=== PATIENT | female | born 1945 | race Caucasian/White ===

== ENCOUNTER → 2017-01-06 | Outpatient (REF) | payer MEDICARE | LOC: M LAB REF 12:55 | PROVIDERS: ATTEND Internal Medicine Nephrology | DX: N04.0 Nephrotic syndrome with minor glomerular abnormality (principal) ==

== ENCOUNTER → 2017-03-25 | Outpatient (REF) | payer MEDICARE ==
[2017-03-25 13:14] LABS: PHOSPHORUS LEVEL 2.7 MG/DL (2.5-4.9)
== END ==
LOC: M LAB REF 12:38
PROVIDERS: ATTEND Nurse Practitioner Adult Health
DX: I12.9 Hypertensive chronic kidney disease with stage 1 through stage 4 chronic kidney disease, or unspecified chronic kidney disease (principal)

== ENCOUNTER → 2017-04-02 | Outpatient (REF) | payer MEDICARE | LOC: M LAB REF 12:52 | PROVIDERS: ATTEND Internal Medicine Nephrology | DX: R19.7 Diarrhea, unspecified (principal); N04.0 Nephrotic syndrome with minor glomerular abnormality ==

== ENCOUNTER → 2017-11-17 | Outpatient (REF) | payer MEDICARE ==
[2017-11-20 00:06] LABS: CYCLOSPORINE LABCORP 86 ng/mL (100-400)
== END ==
LOC: M LAB REF 13:18
DX: N39.0 Urinary tract infection, site not specified (principal); Z87.441 Personal history of nephrotic syndrome
CPT/HCPCS: 80158

== ENCOUNTER → 2018-01-07 | Outpatient (REF) | payer MEDICARE ==
[2018-01-07 14:05] LABS: PHOSPHORUS LEVEL 3.5 MG/DL (2.5-4.9)
== END ==
LOC: M LAB REF 13:13
DX: N18.3 Chronic kidney disease, stage 3 (moderate) (principal); E83.42 Hypomagnesemia
CPT/HCPCS: 84100

== ENCOUNTER → 2018-02-22 | Outpatient (REF) | payer MEDICARE ==
[2018-02-25 00:08] LABS: CYCLOSPORINE LABCORP 71 ng/mL (100-400)
== END ==
LOC: M LAB REF 13:20
DX: Z87.441 Personal history of nephrotic syndrome (principal)
CPT/HCPCS: 80158

== ENCOUNTER → 2018-03-25 | Outpatient (REF) | payer MEDICARE | LOC: M LAB REF 13:25 | DX: N39.0 Urinary tract infection, site not specified (principal) | CPT/HCPCS: 87186 ==

== ENCOUNTER → 2018-07-22 | Outpatient (REF) | payer MEDICARE ==
[2018-07-22 14:52] LABS: PHOSPHORUS LEVEL 3.6 MG/DL (2.5-4.9)
== END ==
LOC: M LAB REF 14:11
DX: N18.9 Chronic kidney disease, unspecified (principal)
CPT/HCPCS: 84100

== ENCOUNTER → 2018-07-22 | Outpatient (REF) | payer MEDICARE ==
[2018-07-23 12:34] LABS: FERRITIN 119 NG/ML (8-252); IRON (FE) 89 UG/DL (50-170); PERCENT SATURATION 29.2 % (13.2-45.0); TOTAL IRON BINDING CAPACITY 305 UG/DL (250-450)
== END ==
LOC: M LAB REF 11:48
DX: N18.9 Chronic kidney disease, unspecified (principal); D63.1 Anemia in chronic kidney disease
CPT/HCPCS: 83550

== ENCOUNTER → 2018-08-04 | Outpatient (REF) | payer MEDICARE ==
[2018-08-04 13:52] LABS: RETIC HEMOGLOBIN EQUIVALENT 36.1 pg (24-36); RETICULOCYTE # 74.6 10^9/L (17-77); RETICULOCYTE % 2.3 % (0.5-1.5)
[2018-08-04 14:10] LABS: FERRITIN 83 NG/ML (8-252); IRON (FE) 84 UG/DL (50-170); PERCENT SATURATION 28.6 % (13.2-45.0); TOTAL IRON BINDING CAPACITY 294 UG/DL (250-450)
== END ==
LOC: M LAB REF 13:31
DX: N18.9 Chronic kidney disease, unspecified (principal); D63.1 Anemia in chronic kidney disease
CPT/HCPCS: 83550

== ENCOUNTER 2018-08-24 08:22 | Day surgery (SDC) | payer MEDICARE ==
[2018-08-24] MEDS ORDERED: NS 1,000 ML IV (09:00)
[2018-08-24 09:33] LABS: BASO % 0.1 % (0.0-1.0); EOS % 0.1 % (0.0-3.0); HEMATOCRIT 33.8 % (36.0-47.0); HEMOGLOBIN 11.5 g/dl (12.0-15.5); IMMATURE GRANULOCYTE % 0.3 % (0-3.0); LYMPH # 0.8 10^3/uL (1.5-4.5); LYMPH % 5.3 % (24.0-44.0); MEAN CORPUSCULAR HEMOGLOBIN 32.3 pg (27.0-33.0); MEAN CORPUSCULAR VOLUME 94.9 fl (80.0-96.0); MONO # 0.9 10^3/uL (0.0-0.8); MONO % 5.7 % (0.0-5.0); NEUTROPHILS % 88.5 % (36.0-66.0); PLATELET COUNT, AUTOMATED 445 10^3/uL (150-450); RED BLOOD COUNT 3.56 10^6/uL (4.00-5.40); RED CELL DISTRIBUTION WIDTH 12.6 % (11.5-14.5); WHITE BLOOD COUNT 15.8 10^3/uL (4.0-10.0)
[2018-08-24] MEDS: GASTROGRAFIN SOLUTION 30ML PO ×2 (09:46→10:15)
[2018-08-24 10:00] LABS: ALBUMIN 3.9 GM/DL (3.2-5.2); ALBUMIN/GLOBULIN RATIO 1.08 (1.00-1.93); ALKALINE PHOSPHATASE 129 U/L (45-117); ALT/SGPT 18 U/L (12-78); AMYLASE 60 U/L (25-115); ANION GAP 11 MEQ/L (8-16); AST/SGOT 13 U/L (7-37); BILIRUBIN,DIRECT 0.1 MG/DL (0.0-0.2); BILIRUBIN,TOTAL 0.4 MG/DL (0.2-1.0); BLOOD UREA NITROGEN 33 MG/DL (7-18); CALCIUM LEVEL 9.6 MG/DL (8.8-10.2); CARBON DIOXIDE LEVEL 19 MEQ/L (21-32); CHLORIDE LEVEL 107 MEQ/L (98-107); CREATININE FOR GFR 1.32 MG/DL (0.55-1.30); GLOMERULAR FILTRATION RATE 41.9 (>39); GLUCOSE, FASTING 121 MG/DL (70-100); LIPASE 232 U/L (73-393); POTASSIUM SERUM 4.7 MEQ/L (3.5-5.1); SODIUM LEVEL 137 MEQ/L (136-145); TOTAL PROTEIN 7.5 GM/DL (6.4-8.2)
[2018-08-24 10:55] LABS: KETONE, URINE AUTO RFX NEGATIVE (NEGATIVE); LEUKOCYTE ESTERASE UR AUTO RFX NEGATIVE (NEGATIVE); MUCUS, URINE RFX SMALL (NEGATIVE); NITRITE, URINE AUTO RFX NEGATIVE (NEGATIVE); RBC, URINE AUTO RFX 0 /HPF (0-3); SPECIFIC GRAVITY UR AUTO RFX 1.005 (1.002-1.035); SQUAM EPITHELIAL CELL UR AURFX 0 /HPF (0-6); WBC, URINE AUTO RFX 0 /HPF (0-3)
[2018-08-24] MEDS: ONDANSETRON 4MG/2ML VIAL (J2405) IV (12:45)
[2018-08-24] MEDS: LevoFLOXacin IV 500 MG in APPROPRIATE DILUENT 1 EA IV (15:19)
[2018-08-24] MEDS: BUPIVACAINE HCL 0.25% 30 ML VIAL As Ordered (15:26)
[2018-08-24] MEDS ORDERED: MIDAZOLAM INJ 2 MG/2 ML VIAL (J2250) As Ordered (15:32)
[2018-08-24] MEDS ORDERED: ONDANSETRON 4MG/2ML VIAL (J2405) As Ordered (15:32)
[2018-08-24] MEDS ORDERED: fentaNYL 250 MCG/5 ML INJECTION (J3010) As Ordered (15:32)
[2018-08-24] MEDS ORDERED: LIDOCAINE 2% INJ 100 MG/5 ML SDV (FOR ANES.) As Ordered (15:32)
[2018-08-24] MEDS ORDERED: ROCURONIUM BROMIDE 50 MG/5 ML VIAL As Ordered (15:32)
[2018-08-24] MEDS ORDERED: GLYCOPYRROLATE INJ 0.2 MG/ML 2 ML VIAL As Ordered (15:32)
[2018-08-24] MEDS ORDERED: NEOSTIGMINE 10 MG/10 ML VIAL (J2710) As Ordered (15:32)
[2018-08-24] MEDS ORDERED: dexameTHASONE 4 MG/ML 1ML VIAL (J1100) As Ordered (15:32)
[2018-08-24] MEDS ORDERED: PROPOFOL 200 MG/20 ML VIAL As Ordered (15:32)
[2018-08-24] MEDS ORDERED: METOCLOPRAMIDE INJ 10MG/2ML VIAL (J2765) As Ordered (15:32)
[2018-08-24] MEDS ORDERED: PHENYLephrine HCL 500 MCG/5 ML (100MCG/ML) SYRINGE (J2370) As Ordered (16:01)
[2018-08-24] MEDS: NS 1,000 ML IV (16:55)
[2018-08-24] MEDS ORDERED: PROMETHAZINE INJ 25 MG/ML VIAL (J2550) IV (17:00)
[2018-08-24] MEDS ORDERED: HYDROmorphone HCL 2 MG/ML 1ML VIAL (J1170) As Ordered (17:00)
[2018-08-24] MEDS ORDERED: METOCLOPRAMIDE INJ 10MG/2ML VIAL (J2765) IV (17:00)
[2018-08-24] MEDS ORDERED: ALBUTEROL SULFATE 2.5 MG/0.5 ML INH NEB SOLN INH (17:00)
[2018-08-24] MEDS ORDERED: NORCO, ANEXSIA 5/325MG TABLET (HYDROcodone/ACETAMINOPHEN) PO (17:00)
[2018-08-24] MEDS ORDERED: MORPHINE 4 MG/ML 1ML VIAL/SYRINGE (J2270) IV (17:00)
[2018-08-24] MEDS ORDERED: ONDANSETRON 4MG/2ML VIAL (J2405) IV ×2 (17:00→17:30)
[2018-08-24] MEDS ORDERED: fentaNYL 100 MCG/2 ML INJECTION (J3010) IV (17:30)
[2018-08-24] MEDS ORDERED: HYDROMORPHONE HCL 0.5 MG/ 0.5 ML SYRINGE (J1170 PER 1) IV (17:30)
[2018-08-24] MEDS: LR 1,000 ML IV (17:30)
[2018-08-24] MEDS ORDERED: PERCOCET 5MG/325MG TAB PO (17:30)
[2018-08-24] MEDS: IPRATROPIUM 0.5MG/ALBUTEROL 2.5MG INH SOL UD 3ML (DUONEB)(J7620) NEB (19:28)
[2018-08-25] MEDS: IPRATROPIUM 0.5MG/ALBUTEROL 2.5MG INH SOL UD 3ML (DUONEB)(J7620) NEB ×2 (07:35→11:44)
[2018-08-25] MEDS: PANTOPRAZOLE 40MG TAB (PROTONIX) PO (08:37)
[2018-08-25] MEDS: VERAPAMIL 120 MG SR TAB PO (08:38)
[2018-08-25] MEDS: LOSARTAN 25 MG TAB PO (08:38)
[2018-08-25] MEDS: NORCO, ANEXSIA 5/325MG TABLET (HYDROcodone/ACETAMINOPHEN) PO (10:36)
[2018-08-25] MEDS ORDERED: LevoFLOXacin IV 250 MG in APPROPRIATE DILUENT 1 EA IV (18:00)
== END 2018-08-25 14:25 | disposition home or self-care (01) ==
LOC: M SDC 08-25 14:25 → M ED 08:22 → M SDC 12:15 → M PED 13:35
DX: K35.80 Unspecified acute appendicitis (principal); I12.9 Hypertensive chronic kidney disease with stage 1 through stage 4 chronic kidney disease, or unspecified chronic kidney disease; E78.5 Hyperlipidemia, unspecified; J45.909 Unspecified asthma, uncomplicated; N18.3 Chronic kidney disease, stage 3 (moderate); K21.9 Gastro-esophageal reflux disease without esophagitis; M54.9 Dorsalgia, unspecified; J44.9 Chronic obstructive pulmonary disease, unspecified; Z88.0 Allergy status to penicillin; Z88.1 Allergy status to other antibiotic agents; Z79.899 Other long term (current) drug therapy; Z79.82 Long term (current) use of aspirin
CPT/HCPCS: 44970

== ENCOUNTER 2018-09-03 16:25 | Emergency (ER) | payer MEDICARE | END 2018-09-03 18:58 | disposition home or self-care (01) | LOC: M ED 16:25 | DX: K59.00 Constipation, unspecified (principal); Z98.890 Other specified postprocedural states; I12.9 Hypertensive chronic kidney disease with stage 1 through stage 4 chronic kidney disease, or unspecified chronic kidney disease; J45.909 Unspecified asthma, uncomplicated; K21.9 Gastro-esophageal reflux disease without esophagitis; N18.3 Chronic kidney disease, stage 3 (moderate); Z88.0 Allergy status to penicillin; Z88.1 Allergy status to other antibiotic agents; Z79.899 Other long term (current) drug therapy; Z79.82 Long term (current) use of aspirin | CPT/HCPCS: 74021 ==

== ENCOUNTER → 2018-09-28 | Outpatient (REF) | payer MEDICARE ==
[~2018-09-28] MED LIST: ASPI1TAB PO; ASPI81TA85 PO; AZEL0.055; AZEL0.055 NARES; BACITAB PO; CYCL25CA6; CYCL25CA6 PO; LANS15CA PO; LASI20TA PO; LEVA250T13 PO; LOSA25TA33; LOSA25TA33 PO; MAGN400T2 PO; MIRA3350 PO; MUCI600T31 PO; NORC1TAB4 PO; PRAM0.255; PRAM0.255 PO; PRAV40TA2; PRAV40TA2 PO; PREV15CA18 PO; PROAAER10; PROAAER10 INH; PROB1CAP10 PO; VALS1TAB49; VERA100C; VERA120C3; VERA120C3 PO; VITA2000 PO; VITA200015 PO; ZOFR4TAB16 PO
== END ==
LOC: M LAB REF 12:41
PROVIDERS: ATTEND Internal Medicine Nephrology
DX: Z87.441 Personal history of nephrotic syndrome (principal)

== ENCOUNTER → 2018-11-24 | Outpatient (REF) | payer MEDICARE ==
[~2018-11-24] MED LIST changes: -LASI20TA PO; +LASI20TA3 PO; +LOSA25TA14; +LOSA25TA14 PO; -LOSA25TA33; -LOSA25TA33 PO
== END ==
LOC: M LAB REF 12:45
PROVIDERS: ATTEND Internal Medicine Nephrology
DX: Z87.441 Personal history of nephrotic syndrome (principal)

== ENCOUNTER → 2019-04-01 | Outpatient (REF) | payer MEDICARE ==
[~2019-04-01] MED LIST changes: -ASPI1TAB PO; +ASPI81TA26 PO; -NORC1TAB4 PO; +NORC1TAB7 PO
== END ==
LOC: M LAB REF 17:10
PROVIDERS: ATTEND Internal Medicine Nephrology
DX: Z87.441 Personal history of nephrotic syndrome (principal)

== ENCOUNTER → 2019-11-17 | Outpatient (REF) | payer MEDICARE ==
[~2019-11-17] MED LIST changes: -VALS1TAB49; +VALS40TA9; -VERA100C; +VERA100C4
[2019-11-17 14:25] LABS: ALBUMIN 3.9 GM/DL (3.2-5.2); BILIRUBIN,DIRECT 0.2 MG/DL (0.0-0.2); BILIRUBIN,TOTAL 0.5 MG/DL (0.2-1.0); TOTAL PROTEIN 7.3 GM/DL (6.4-8.2)
== END ==
LOC: M LAB REF 13:02
PROVIDERS: ATTEND Nurse Practitioner Family
DX: Z51.81 Encounter for therapeutic drug level monitoring (principal); Z79.899 Other long term (current) drug therapy; N18.3 Chronic kidney disease, stage 3 (moderate)

== ENCOUNTER → 2019-11-18 | Outpatient (REF) | payer MEDICARE | LOC: M LAB REF 13:34 | PROVIDERS: ATTEND Nurse Practitioner Family | DX: E87.5 Hyperkalemia (principal) ==

== ENCOUNTER 2020-06-14 10:45 | Inpatient (IN) | payer MEDICARE ==
[~2020-06-14] VITALS: Ht 149.9 cm; Wt 62.3 kg
[2020-06-14] VITALS (9 sets, daily range): BP systolic 119–165; BP diastolic 58–90
[~2020-06-14 10:45] MED LIST changes: -ASPI81TA85 PO; +ASPI81TA86 PO
[2020-06-14] MEDS ORDERED: NS 1,000 ML IV ONE (11:15)
[2020-06-14 12:09] LABS: BASO % 0.2 % (0.0-1.0); EOS % 0.4 % (0.0-3.0); HEMATOCRIT 22.2 % (36.0-47.0); HEMOGLOBIN 7.1 g/dl (12.0-15.5); LYMPH % 12.5 % (24.0-44.0); MEAN CORPUSCULAR HEMOGLOBIN 31.1 pg (27.0-33.0); MEAN CORPUSCULAR VOLUME 97.4 fl (80.0-96.0); MONO # 0.6 10^3/uL (0.0-0.8); MONO % 7.1 % (0.0-5.0); NEUTROPHILS # 6.4 10^3/uL (1.5-8.5); NEUTROPHILS % 79.3 % (36.0-66.0); PLATELET COUNT, AUTOMATED 322 10^3/uL (150-450); RED BLOOD COUNT 2.28 10^6/uL (4.00-5.40)
[2020-06-14 12:19] LABS: INR 1.01; PROTHROMBIN TIME 13.5 SECONDS (11.8-14.0)
[2020-06-14 12:43] LABS: ALBUMIN 2.9 GM/DL (3.2-5.2); ALT/SGPT 14 U/L (12-78); BILIRUBIN,DIRECT 0.1 MG/DL (0.0-0.2); BILIRUBIN,TOTAL 0.3 MG/DL (0.2-1.0); BLOOD UREA NITROGEN 54 MG/DL (7-18); CALCIUM LEVEL 8.4 MG/DL (8.8-10.2); CARBON DIOXIDE LEVEL 18 MEQ/L (21-32); CHLORIDE LEVEL 108 MEQ/L (98-107); CPK CREATINE PHOSPHOKINASE 60 U/L (26-192); CREATININE FOR GFR 2.07 MG/DL (0.55-1.30); GLOMERULAR FILTRATION RATE 24.8 (>39); GLUCOSE, FASTING 137 MG/DL (70-100); LIPASE 162 U/L (73-393); MB/CK RELATIVE INDEX 1.67 (< OR =4); POTASSIUM SERUM 4.1 MEQ/L (3.5-5.1); SODIUM LEVEL 137 MEQ/L (136-145); TOTAL PROTEIN 5.7 GM/DL (6.4-8.2); TROPONIN I < 0.02 NG/ML (< 0.10)
[2020-06-14] MEDS ORDERED: PANTOPRAZOLE 40MG VIAL (C9113 PER 1) IV ONE (13:00)
[2020-06-14] MEDS ORDERED: ACETAMINOPHEN TAB 650MG DOSE (2X325MG) PO PRN (13:45)
[2020-06-14] MEDS ORDERED: D200CAP PO (13:56)
[2020-06-14] MEDS ORDERED: LOPE2TAB12 PO (13:56)
[2020-06-14] MEDS ORDERED: PREV15CA PO (13:56)
[2020-06-14] MEDS ORDERED: ACET1TAB55 PO ×2 (13:58→14:01)
--- NOTE | 2020-06-14 15:10 | HPEPDOC ---
General Date of Admission Jun 14, 2020 at 13:40 Date of Service: Jun 14, 2020 Attending Physician: JOSE ROBERTO KEN MD Chief Complaint The patient is a 75-year-old female admitted with a reason for visit of Gi Bleed. Source: Patient Exam Limitations: No limitations Timing/Duration: 24 hours Severity: Moderate Associated Symptoms: Syncope History of Present Illness 75 yo W with history of remote LGIB 2/2 diverticulosis, history of colonic polyps, Q5Y colonoscopies for history of polyps and 1st degree relative with colon CA, last colonoscopy in [address] Tolbert during which she was noted to have diffuse diverticulosis throughout the entire colon and internal hemorrhoids, who presents to the ED with shona BRBPR with associated syncopal episode at home. In the ED, she was hemodynamically stable, stable on room air but reported multiple bouts of shona painless blood per rectum without abdominal pain, recent straining or constipation, notable weight loss or weakness until yesterday. She is still working fulltime and has medical history significant for CKD3, HTN and GERD. Workup thus far revealed hgb of 7.1 (from last known of 11s in 2017), WBC 8, platelets 322, na 137, K 4.1, bicarb 18, BUN 54, Cr 2.07, LFTs wnl, lipase 162. The ED type and crossed her and ordered 2u pRBCs and TAYLOR'payam Fields who recommended admission to medicine. I am not admitting for further evaluation of her LGIB. Home Medications Scheduled Acetaminophen (Acetaminophen) 325 Mg Tablet, 325 MG PO QAM, (Reported) Aspirin (Aspirin EC) 81 Mg Tab, 81 MG PO QAM, (Reported) Cholecalciferol (Vitamin D3) (Vitamin D3) 50 Mcg Capsule, 2,000 UNITS PO DAILY, (Reported) Cyclosporine, Modified (Cyclosporine Modified) 25 Mg Cap, 50 MG PO BID, (Reported) L.acidoph/L.bulg/B.bif/S.therm (Bacid Caplet) 1 Tab Tab, 1 TAB PO QHS, (Reported) Lansoprazole (Lansoprazole) 15 Mg Cap, 15 MG PO DAILY, (Reported) Magnesium Oxide (Magnesium Oxide) 400 Mg Tab, 400 MG PO 4XWK, (Reported) SUN,MON,WED,FRI Pravastatin Sodium (Pravastatin Sodium) 40 Mg Tab, 40 MG PO DAILY, (Reported) Verapamil HCl (Verapamil Sr) 120 Mg Cap, 120 MG PO DAILY, (Reported) Scheduled PRN Acetaminophen (Acetaminophen) 325 Mg Tablet, 325 MG PO QHS PRN for PAIN / FEVER, (Reported) Loperamide HCl (Imodium A-D) 2 Mg Tablet, 2 MG PO BID PRN for DIARRHEA, (Reported) Allergies Coded Allergies: Penicillins (Verified Allergy, Unknown, 06/14/20) doxycycline (Verified Allergy, Unknown, 06/14/20) levofloxacin (Verified Allergy, Unknown, 06/14/20) Past Medical History Medical History LGIB 2/2 diverticulosis, history of colonic polyps, Q5Y colonoscopies for history of polyps and 1st degree relative with colon CA, last colonoscopy [place] [address] 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 Completely independent. A-FIB/CHADSVASC A-FIB History Current/History of A-Fib/PAF?: No Current PO Anticoag Therapy: No Age/Risk Factor Scoring CHADSVASC: CHADSVASC Response (Comments) Value Age Risk Factor Age >/= 75 years old 2 Gender Risk Factor Female 1 Hx of CHF No 0 Hx of HTN Yes 1 Hx of Stroke/TIA/or VTE No 0 Hx of Diabetes No 0 Hx of Vascular Disease No 0 Total 4 Treatment Treatment ordered: NONE Reason Anticoagulant not given: Not indicated/[id number] Review of Systems Constitutional: Denies: Chills, Fever, Night Sweats Eyes: Denies: Pain, Vision change ENT: Denies: Head Aches, Ear Pain, Dysphagia Skin: Denies: Rash, Lesions, Breakdown Pulmonary: Denies: Dyspnea, Cough Cardiovascular: Denies: Chest Pain, Palpitations, Orthopnea, Paroxysmal Noc. Dyspnea, Lt Headedness Gastrointestinal: Reports: Hematochezia, Other Symptoms (shona BRBPR); Denies: Nausea, Vomiting, Abdominal Pain, Diarrhea Genitourinary: Denies: Dysuria, Frequency, Incontinence, Retention Hematologic: Denies: Bruising, Bleeding Excessively Endocrine: Denies: Polydipsia, Polyphagia, Polyuria, Heat Intolerance, Cold Intolerance, Other Endocrine Sx Musculoskeletal: Denies: Neck Pain, Back Pain, Joint Pain, Muscle Pain, Spasms Neurological: Denies: Weakness, Numbness, Change in speech, Confusion Psych: Reports: Mood Normal; Denies: Depression, Memory Issues Physical Examination General Exam: Positive: Alert, No Acute Distress Eye Exam: Positive: PERRLA, Conjunctiva & lids normal, EOMI; Negative: Sclera icteric ENT Exam: Positive: Atraumatic, Mucous membr. moist/pink, Pharynx Normal Neck Exam: Positive: Supple; Negative: JVD, thyromegaly Chest Exam: Positive: Clear to auscultation, Normal air movement Heart Exam: Positive: Rate Normal, Regular Rhythm, Normal S1, Normal S2; Negative: Murmurs, Rubs Telemetry: Positive: No significant arrhythmia Abdomen Exam: Positive: Normal bowel sounds, Soft; Negative: Tenderness, Hepatospenomegaly, Mass, Hernia Extremity Exam: Positive: Normal pulses; Negative: Clubbing, Cyanosis, Edema Skin Exam: Positive: Nl turgor and temperature; Negative: Breakdown, Lesion Neuro Exam: Positive: Normal Gait, Normal Speech, Strength at 5/5 X4 ext, Normal Tone, Sensation Intact, Cranial Nerves 3-12 NL Psych Exam: Positive: Mental status NL, Oriented x 3 Vital Signs Vital Signs Date Time Temp Pulse Resp B/P (MAP) Pulse Ox O2 Delivery O2 Flow Rate FiO2 06/14/20 12:08 109 110/64 (79) 110 108/66 (80) 112 116/69 (85) 06/14/20 10:45 97.3 20 97 Room Air Laboratory Data Labs 24H Laboratory Tests 2 06/14/20 11:51: Immature Granulocyte % (Auto) 0.5, Neutrophils (%) (Auto) 79.3H, Lymphocytes (%) (Auto) 12.5L, Monocytes (%) (Auto) 7.1H, Eosinophils (%) (Auto) 0.4, Basophils (%) (Auto) 0.2, Neutrophils # (Auto) 6.4, Lymphocytes # (Auto) 1.0L, Monocytes # (Auto) 0.6, Eosinophils # (Auto) 0.0, Basophils # (Auto) 0.0, Nucleated Red Blood Cells % (auto) 0.0, Prothrombin Time 13.5, Prothromb Time International Ratio 1.01, Anion Gap 11, Glomerular Filtration Rate 24.8L, Lactic Acid Level 2.4*H, Calcium Level 8.4L, Total Bilirubin 0.3, Direct Bilirubin 0.1, Aspartate Amino Transf (AST/SGOT) 15, Alanine Aminotransferase (ALT/SGPT) 14, Alkaline Phosphatase 80, Total Creatine Kinase 60, Creatine Kinase MB 1.0, Creatine Kinase MB Relative Index 1.67, Troponin I < 0.02, Total Protein 5.7L, Albumin 2.9L, Albumin/Globulin Ratio 1.0L, Lipase 162 CBC/BMP Laboratory Tests 06/14/20 11:51 Assessment/Plan 75 yo W with history of remote LGIB 2/2 diverticulosis, history of colonic polyps, Q5Y colonoscopies for history of polyps and 1st degree relative with colon CA, last colonoscopy in [address] Tolbert during which she was noted to have diffuse diverticulosis throughout the entire colon and internal hemorrhoids, as well as chronic anemia last known Hgb ~11 who presents to the ED with shona BRBPR with associated syncopal episode at home and found to have acute LGIB with acute on chronic anemia. LGIB: Painless shona bright red blood per rectum and hematochezia with a history of remote LGIB 2/2 diverticulosis, history of colonic polyps, Q5Y colonoscopies for history of polyps and 1st degree relative with colon CA, last colonoscopy in [address] Tolbert during which she was noted to have diffuse diverticulosis throughout the entire colon and internal hemorrhoids. -getting 2u pRBCs currently -Q6H CBC -Transfuse to Hgb >8 -Spoke wtih Dr. Fields, given suspicion of diverticular bleeding, will monitor degree of bleeding and Q6H CBC and will officially consult if bleeding is persistent -CT A/P without contrast given history of colonic polyps and strong history of colon CA in 1st degree relatives -s/p 1L NS and normotensive -2 large bore IVs Acute on chronic anemia: Likely 2/2 GIB but will also check Fe studies given chronic anemia history -Ferritin -TIB -iron -% saturation Vitamin 312 -folate -getting 2u pRBCs, with goal hgb >8 -Monitoring GIB for indication of emergent intervention Syncope: likely 2/2 acute volume loss in the setting of significant GIB as well as symptomatic anemia -No chest pain, EKG was non ischemic and telemetry thus far unremarkable -telemetry -s/p 1L NS, currently getting 2u pRBCs -monitor for GIB and investigate GIB per above -unlikely cardiac in origin -orthostatic vitals signs x 1 ANDRES on 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 Likely prerenal in the setting of GIB -continue home cyclosporine -monitor BMP, with bicarb of 18 and Cr of ~2 -s/p 1L NS and getting 2u pRBCs -strict I/Os HTN: -continue home verapamil GI ppx: IV PPI BID for now, though she really unlikely has an upper GIB DVT ppx: TEDs and SCDs Plan / VTE VTE Prophylaxis Ordered?: Yes JOSE ROBERTO KEN MD Jun 14, 2020 15:10
[2020-06-14 15:17] LABS: PERCENT SATURATION 22.6 % (13.2-45.0)
[2020-06-14 15:24] LABS: FOLATE 11.4 NG/ML (>5.4)
--- NOTE | 2020-06-14 16:02 | REPVR ---
PROCEDURE INFORMATION: Exam: CT Abdomen And Pelvis Without Contrast Exam date and time: 06/14/2020 3:26 PM Age: 75 years old Clinical indication: Other: Brbpr with HX of polyps and fam HX of colon CA TECHNIQUE: Imaging protocol: Computed tomography of the abdomen and pelvis without contrast. Radiation optimization: All CT scans at this facility use at least one of these dose optimization techniques: automated exposure control; mA and/or kV adjustment per patient size (includes targeted exams where dose is matched to clinical indication); or iterative reconstruction. COMPARISON: CT ABD/PEL W/PO CONTRAST ONLY 08/24/2018 11:20 AM FINDINGS: Lungs: There are minor linear atelectatic or fibrotic densities the lung bases. No consult. Mediastinal space: There is a moderate hiatal hernia. Liver: The liver is normal. Gallbladder and bile ducts: The gallbladder is normal.No calcified calculi. Normal bile ducts. Pancreas: Normal. No ductal dilation. Spleen: The spleen is normal. Adrenals: The adrenals are normal. Kidneys and ureters: There are bilateral hypodense renal lesions. The largest is on the left measuring 14 mm. There is a small density in the posterior rim. These are probably uncomplicated cysts and are unchanged since the prior scan. There is no renal calculus or nephrosis. Stomach and bowel: There are extensive colonic diverticula. No bowel wall thickening or inflammation. No bowel distension. Appendix: There are surgical sutures at the tip of the cecum and there is no visible appendix consistent with appendectomy since the prior scan Intraperitoneal space: There is no free fluid or fluid collection. No free air. 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 There are atherosclerotic calcifications of the aorta. No evidence of aortic aneurysm. There are coronary artery calcifications. Lymph nodes: Unremarkable. No enlarged lymph nodes. Bladder: The bladder is normal with no evidence of calculi. Reproductive: A calcified 2.2 cm uterine fibroid unchanged from prior scan. Bones/joints: There are degenerative changes of the lumbar spine. No fracture or focal osseous lesion. Soft tissues: Unremarkable. IMPRESSION: 1. Extensive diverticulosis. 2. Moderate hiatal hernia. 3. Appendectomy since the previous scan. No acute findings. Electronically signed by: Jabier So On 06/14/2020 16:01:37 PM
[2020-06-14] MEDS: LACTOBACILLUS ACIDOPHILUS CAP (BACID) PO SCH (22:30)
[2020-06-14] MEDS: NEORAL 25 MG CAP (J7515) PO SCH (22:51)
[2020-06-14] MEDS: PANTOPRAZOLE 40MG VIAL (C9113 PER 1) IV SCH (23:50)
[2020-06-15 00:44] VITALS: BP 134/62
[2020-06-15 00:51] LABS: MEAN CORPUSCULAR HEMOGLOBIN 31.5 pg (27.0-33.0); MEAN CORPUSCULAR HGB CONC 33.7 g/dl (32.0-36.5); MEAN CORPUSCULAR VOLUME 93.4 fl (80.0-96.0); PLATELET COUNT, AUTOMATED 267 10^3/uL (150-450); RED BLOOD COUNT 2.89 10^6/uL (4.00-5.40); WHITE BLOOD COUNT 7.6 10^3/uL (4.0-10.0)
[2020-06-15 01:01] LABS: HEMOGLOBIN 9.1 g/dl (12.0-15.5)
[2020-06-15] MEDS ORDERED: ASPIRIN 81 MG ENTERIC TAB PO SCH (09:00)
[2020-06-15] MEDS: PRAVASTATIN 20 MG TAB PO SCH (09:26)
[2020-06-15] MEDS: PANTOPRAZOLE 40MG VIAL (C9113 PER 1) IV SCH (09:26)
[2020-06-15] MEDS: VERAPAMIL 120 MG SR TAB PO SCH (09:27)
[2020-06-15] MEDS: NEORAL 25 MG CAP (J7515) PO SCH ×2 (09:28→20:57)
[2020-06-15 09:33] LABS: HEMOGLOBIN 9.3 g/dl (12.0-15.5); MEAN CORPUSCULAR HEMOGLOBIN 31.3 pg (27.0-33.0); MEAN CORPUSCULAR HGB CONC 34.4 g/dl (32.0-36.5); MEAN CORPUSCULAR VOLUME 90.9 fl (80.0-96.0); PLATELET COUNT, AUTOMATED 287 10^3/uL (150-450); RED BLOOD COUNT 2.97 10^6/uL (4.00-5.40); WHITE BLOOD COUNT 8.4 10^3/uL (4.0-10.0)
[2020-06-15 10:15] LABS: CALCIUM LEVEL 8.4 MG/DL (8.8-10.2); CREATININE FOR GFR 1.28 MG/DL (0.55-1.30); GLOMERULAR FILTRATION RATE 43.2 (>39); MAGNESIUM LEVEL 1.8 MG/DL (1.8-2.4); POTASSIUM SERUM 3.7 MEQ/L (3.5-5.1)
--- NOTE | 2020-06-15 12:53 | IPNPDOC ---
Text Note Date of Service The patient was seen on 06/15/20. NOTE Subjective: -No issues overnight. H/H stable this AM. Then midmorning she began having painless hematochezia again, 4 episodes at this point General: Alert, No Acute Distress Eye: PERRLA, Conjunctiva & lids normal, EOMI, anicteric ENT: Atraumatic, Mucous membr. moist/pink, Pharynx Normal Neck: Supple, no JVD or thyromegaly Chest: Clear to auscultation, Normal air movement Heart: Rate Normal, Regular Rhythm, Normal S1, Normal S2, no mrg Telemetry: NSR, no arrhythmia Abdomen: Normal bowel sounds, soft, NTND Extremities: Normal pulses, no LE edema Skin: Nl turgor and temperature, has bruise on arm at site of old IV, otherwise no lesions or rashes Neuro Exam: Normal Speech, Strength at 5/5 X4 ext, Normal Tone, Sensation Intact, Cranial Nerves 3-12 NL Psych : Mental status NL, Oriented x 3 Data: Reviewed WBC 8.4 Hgb 9.3 platelets 287 na 144 K 3.7 Cr 1.28 mag 1.8 Assessment/Plan 75 yo W with history of remote LGIB 2/2 diverticulosis, history of colonic polyps, Q5Y colonoscopies for history of polyps and 1st degree relative with colon CA, last colonoscopy in [address] Tolbert during which she was noted to have diffuse diverticulosis throughout the entire colon and internal hemorrhoids, as well as chronic anemia last known Hgb ~11 who presents to the ED with shona BRBPR with associated syncopal episode at home and found to have acute LGIB with acute on chronic anemia with ongoing episodic hemetochezia this morning. LGIB: Painless shona bright red blood per rectum and hematochezia with a history of remote LGIB 2/2 diverticulosis, history of colonic polyps, Q5Y colonoscopies for history of polyps and 1st degree relative with colon CA, last colonoscopy in [address] Tolbert during which she was noted to have diffuse diverticulosis throughout the entire colon and internal hemorrhoids. -s/p 2u pRBCs currently -Q6H CBC -Transfuse to Hgb >8 -Spoke wtih Dr. Fields, given suspicion of diverticular bleeding, will monitor degree of bleeding and Q12H CBC and will officially consult if bleeding is severe requiring more units of blood -CT A/P without contrast given history of colonic polyps and strong history of colon CA in 1st degree relatives showed no culprit lesion, showed diffuse diverticulosis -s/p 1L NS and normotensive -2 large bore IVs -checking CBC at 1600hrs -clear liquid diet Acute on chronic anemia: Likely 2/2 GIB but will also check Fe studies given chronic anemia history -Ferritin low and low Fe, c/w TAMMY likely 2/2 chronic GI losses -s/p 2u pRBCs, with goal hgb >8 -Monitoring GIB for indication of emergent intervention such as colonoscopy, will likely give more blood this afternoon -Q12H CBCs -will need to be on PO ferrous sulfate at discharge Syncope: likely 2/2 acute volume loss in the setting of significant GIB as well as symptomatic anemia -No chest pain, EKG was non ischemic and telemetry thus far unremarkable -telemetry -s/p 1L NS, s/p 2u pRBCs -monitor for GIB and investigate GIB per above -unlikely cardiac in origin ANDRES on 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 Likely prerenal in the setting of GIB, much improved -continue home cyclosporine -monitor BMP, with bicarb of 18 and Cr of ~2 -s/p 1L NS and 2u pRBCs -strict I/Os HTN: -continue home verapamil GI ppx: daily PPI DVT ppx: TEDs and SCDs VS,Fishbone, I+O VS, Fishbone, I+O Laboratory Tests 06/15/20 00:34 06/15/20 09:18 Vital Signs Date Time Temp Pulse Resp B/P (MAP) Pulse Ox O2 Delivery O2 Flow Rate FiO2 06/15/20 11:47 98.1 87 16 148/66 (93) 95 Room Air 06/14/20 20:49 97 I&O- Last 24 Hours up to 6 AM 06/15/20 06:00 Intake Total 1200 ml Balance 1200 ml JOSE ROBERTO KEN MD Jun 15, 2020 12:53
[2020-06-15 13:40] VITALS: BP 139/80
[2020-06-15] MEDS: LACTOBACILLUS ACIDOPHILUS CAP (BACID) PO SCH (20:57)
[2020-06-15 22:00] VITALS: BP 133/77
[2020-06-16 06:00] VITALS: BP 117/56
[2020-06-16 06:21] LABS: HEMATOCRIT 25.4 % (36.0-47.0); HEMOGLOBIN 8.4 g/dl (12.0-15.5); MEAN CORPUSCULAR HEMOGLOBIN 30.9 pg (27.0-33.0); MEAN CORPUSCULAR HGB CONC 33.1 g/dl (32.0-36.5); MEAN CORPUSCULAR VOLUME 93.4 fl (80.0-96.0); PLATELET COUNT, AUTOMATED 291 10^3/uL (150-450); RED BLOOD COUNT 2.72 10^6/uL (4.00-5.40); WHITE BLOOD COUNT 6.2 10^3/uL (4.0-10.0)
[2020-06-16 06:53] LABS: CALCIUM LEVEL 8.1 MG/DL (8.8-10.2); CREATININE FOR GFR 1.14 MG/DL (0.55-1.30); GLOMERULAR FILTRATION RATE 49.3 (>39); POTASSIUM SERUM 4.1 MEQ/L (3.5-5.1)
[2020-06-16] MEDS: PRAVASTATIN 20 MG TAB PO SCH (09:07)
[2020-06-16] MEDS: VERAPAMIL 120 MG SR TAB PO SCH (09:10)
[2020-06-16] MEDS: NEORAL 25 MG CAP (J7515) PO SCH ×2 (09:10→19:41)
[2020-06-16] MEDS: PANTOPRAZOLE 40MG VIAL (C9113 PER 1) IV SCH (09:12)
[2020-06-16 14:00] VITALS: BP 110/60
[2020-06-16 16:13] LABS: HEMATOCRIT 24.4 % (36.0-47.0); HEMOGLOBIN 8.2 g/dl (12.0-15.5)
--- NOTE | 2020-06-16 18:37 | IPNPDOC ---
Text Note Date of Service The patient was seen on 06/16/20. NOTE Subjective: -Has been having more bloody movements that seem to concide with PO at this time, otherwise no pain complaints, no N/V, chest pain, or tele events General: Alert, No Acute Distress Eye: PERRLA, Conjunctiva & lids normal, EOMI, anicteric ENT: Atraumatic, Mucous membr. moist/pink, Pharynx Normal Neck: Supple, no JVD or thyromegaly Chest: Clear to auscultation, Normal air movement Heart: Rate Normal, Regular Rhythm, Normal S1, Normal S2, no mrg Telemetry: NSR, no arrhythmia Abdomen: Normal bowel sounds, soft, NTND Extremities: Normal pulses, no LE edema Skin: Nl turgor and temperature, has bruise on arm at site of old IV, otherwise no lesions or rashes Neuro Exam: Normal Speech, Strength at 5/5 X4 ext, Normal Tone, Sensation Intact, Cranial Nerves 3-12 NL Psych : Mental status NL, Oriented x 3 Data: Reviewed WBC 6.2 Hgb 8.4 na 143 K 4.1 Cr 1.14 Assessment/Plan 75 yo W with history of remote LGIB 2/2 diverticulosis, history of colonic polyps, Q5Y colonoscopies for history of polyps and 1st degree relative with colon CA, last colonoscopy in [address] Tolbert during which she was noted to have diffuse diverticulosis throughout the entire colon and internal hemorrhoids, as well as chronic anemia last known Hgb ~11 who presents to the ED with shona BRBPR with associated syncopal episode at home and found to have acute LGIB with acute on chronic anemia with ongoing episodic hemetochezia this morning. LGIB: Painless shona bright red blood per rectum and hematochezia with a history of remote LGIB 2/2 diverticulosis, history of colonic polyps, Q5Y colonoscopies for history of polyps and 1st degree relative with colon CA, last colonoscopy in [address] Tolbert during which she was noted to have diffuse diverticulosis throughout the entire colon and internal hemorrhoids. -s/p 2u pRBCs -Q6H CBC -Transfuse to Hgb >8 -Spoke wtih Dr. Fields, given suspicion of diverticular bleeding, will monitor degree of bleeding and Q12H CBC and will officially consult if bleeding is severe requiring more units of blood -CT A/P without contrast given history of colonic polyps and strong history of colon CA in 1st degree relatives showed no culprit lesion, showed diffuse diverticulosis -s/p 1L NS and normotensive -2 large bore IVs -checking CBC at 1600hrs -advance to full liquid diet Acute on chronic anemia: Likely 2/2 GIB but will also check Fe studies given chronic anemia history -Ferritin low and low Fe, c/w TAMMY likely 2/2 chronic GI losses -s/p 2u pRBCs, with goal hgb >8 -Monitoring GIB for indication of emergent intervention such as colonoscopy, will likely give more blood this afternoon -Q12H H/Hs -will need to be on PO ferrous sulfate at discharge Syncope: likely 2/2 acute volume loss in the setting of significant GIB as well as symptomatic anemia -No chest pain, EKG was non ischemic and telemetry thus far unremarkable -telemetry -s/p 1L NS, s/p 2u pRBCs -monitor for GIB and investigate GIB per above -unlikely cardiac in origin ANDRES on 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 Likely prerenal in the setting of GIB, resolved -continue home cyclosporine -monitor BMP, with bicarb of 18 and Cr of ~2 -s/p 1L NS and 2u pRBCs -strict I/Os HTN: -continue home verapamil GI ppx: daily PPI DVT ppx: TEDs and SCDs VS,Fishbone, I+O VS, Fishbone, I+O Laboratory Tests 06/16/20 05:43 06/16/20 16:03 Vital Signs Date Time Temp Pulse Resp B/P (MAP) Pulse Ox O2 Delivery O2 Flow Rate FiO2 06/16/20 14:00 98.2 76 16 110/60 (77) 92 Room Air 06/14/20 20:49 97 I&O- Last 24 Hours up to 6 AM 06/16/20 06:00 Intake Total 660 ml Output Total 0 ml Balance 660 ml JOSE ROBERTO KEN MD Jun 16, 2020 18:37
[2020-06-16] MEDS: LACTOBACILLUS ACIDOPHILUS CAP (BACID) PO SCH (19:40)
[2020-06-17] VITALS (10 sets, daily range): BP systolic 98–146; BP diastolic 52–86
[2020-06-17 06:16] LABS: HEMATOCRIT 24.5 % (36.0-47.0); HEMOGLOBIN 8.4 g/dl (12.0-15.5); MEAN CORPUSCULAR HEMOGLOBIN 31.7 pg (27.0-33.0); MEAN CORPUSCULAR HGB CONC 34.3 g/dl (32.0-36.5); MEAN CORPUSCULAR VOLUME 92.5 fl (80.0-96.0); PLATELET COUNT, AUTOMATED 317 10^3/uL (150-450); RED BLOOD COUNT 2.65 10^6/uL (4.00-5.40); WHITE BLOOD COUNT 5.8 10^3/uL (4.0-10.0)
[2020-06-17 06:33] LABS: CALCIUM LEVEL 8.4 MG/DL (8.8-10.2); CREATININE FOR GFR 1.11 MG/DL (0.55-1.30); GLOMERULAR FILTRATION RATE 50.9 (>39); POTASSIUM SERUM 4.3 MEQ/L (3.5-5.1)
[2020-06-17] MEDS: PANTOPRAZOLE 40MG VIAL (C9113 PER 1) IV SCH (08:29)
[2020-06-17] MEDS: NEORAL 25 MG CAP (J7515) PO SCH (08:31)
[2020-06-17] MEDS: PRAVASTATIN 20 MG TAB PO SCH (08:32)
[2020-06-17] MEDS: VERAPAMIL 120 MG SR TAB PO SCH (08:33)
--- NOTE | 2020-06-17 15:33 | DS.PDOC ---
Discharge Summary General Date of Admission Jun 14, 2020 at 13:40 Date of Discharge 06/17/2020 Attending Physician: JOSE ROBERTO KEN MD Discharge Summary PROCEDURES PERFORMED DURING STAY: None ADMITTING DIAGNOSES: 1. LGIB DISCHARGE DIAGNOSES: LGIB 2/2 diverticulosis History of colonic polyps, Q5Y colonoscopies for history of polyps and 1st degree relative with colon CA, last colonoscopy [place] [address] 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 HISTORY OF PRESENT ILLNESS: 75 yo W with history of remote LGIB 2/2 diverticulosis, history of colonic polyps, Q5Y colonoscopies for history of polyps and 1st degree relative with colon CA, last colonoscopy in [address] Tolbert during which she was noted to have diffuse diverticulosis throughout the entire colon and internal hemorrhoids, who presented to the ED with shona BRBPR with associated syncopal episode at home. HOSPITAL COURSE: In the ED, she was hemodynamically stable, stable on room air but reported multiple bouts of shona painless blood per rectum without abdominal pain, recent straining or constipation, notable weight loss or weakness until yesterday. She is still working fulltime and has medical history significant for CKD3, HTN and GERD. Workup revealed hgb of 7.1 (from last known of 11s in 2018), WBC 8, platelets 322, na 137, K 4.1, bicarb 18, BUN 54, Cr 2.07, LFTs wnl, lipase 162. The ED type and crossed her and ordered 2u pRBCs and FYI'd Dr. Fields who recommended admission to medicine. While on medicine she had episodic hematochezia that slowed and I gave her 1 more unit of blood before discharge home with close PCP follow up. Of note, given the strong history of polyps and first degree relative having a history of colon CA, I did a CT A/P and it showed diffuse diverticulosis without any masses or other acute pathology. DISCHARGE MEDICATIONS: Please see below. ALLERGIES: Please see below. PHYSICAL EXAMINATION ON DISCHARGE: VITAL SIGNS: Please see below. General: Alert, No Acute Distress Eye: PERRLA, Conjunctiva & lids normal, EOMI, anicteric ENT: Atraumatic, Mucous membr. moist/pink, Pharynx Normal Neck: Supple, no JVD or thyromegaly Chest: Clear to auscultation, Normal air movement Heart: Rate Normal, Regular Rhythm, Normal S1, Normal S2, no mrg Telemetry: NSR, no arrhythmia Abdomen: Normal bowel sounds, soft, NTND Extremities: Normal pulses, no LE edema Skin: Nl turgor and temperature Neuro Exam: Normal Speech, Strength at 5/5 X4 ext, Normal Tone, Sensation Intact, Cranial Nerves 3-12 NL Psych : Mental status NL, Oriented x 3 LABORATORY DATA: Please see below. IMAGING: CT A/P: 1. Extensive diverticulosis. 2. Moderate hiatal hernia. 3. Appendectomy since the previous scan. No acute findings. PROGNOSIS: Good, however likely to have some episodic bleeding in the future ACTIVITY: As tolerated DIET: As tolerated DISCHARGE PLAN: Home with closes PCP follow up DISPOSITION: Home DISCHARGE INSTRUCTIONS: 1. Home with closes PCP follow up ITEMS TO FOLLOWUP ON ON OUTPATIENT: 1. Diverticular bleeding DISCHARGE CONDITION: Stable TIME SPENT ON DISCHARGE: 36 minutes. Vital Signs/I&Os Vital Signs Date Time Temp Pulse Resp B/P (MAP) Pulse Ox O2 Delivery O2 Flow Rate FiO2 06/17/20 08:33 86 130/74 06/17/20 06:00 98.2 18 96 Room Air 06/14/20 20:49 97 I&O- Last 24 Hours up to 6 AM 06/17/20 06:00 Intake Total 1900 ml Output Total 0 ml Balance 1900 ml Laboratory Data Labs 24H Laboratory Tests 2 06/17/20 05:46: Nucleated Red Blood Cells % (auto) 0.0, Anion Gap 5L, Glomerular Filtration Rate 50.9, Calcium Level 8.4L CBC/BMP Laboratory Tests 06/16/20 16:03 06/17/20 05:46 Discharge Medications Scheduled Acetaminophen (Acetaminophen) 325 Mg Tablet, 325 MG PO QAM, (Reported) Aspirin (Aspirin EC) 81 Mg Tab, 81 MG PO QAM, (Reported) Cholecalciferol (Vitamin D3) (Vitamin D3) 50 Mcg Capsule, 2,000 UNITS PO DAILY, (Reported) Cyclosporine, Modified (Cyclosporine Modified) 25 Mg Cap, 50 MG PO BID, (Reported) L.acidoph/L.bulg/B.bif/S.therm (Bacid Caplet) 1 Tab Tab, 1 TAB PO QHS, (Reported) Lansoprazole (Lansoprazole) 15 Mg Cap, 15 MG PO DAILY, (Reported) Magnesium Oxide (Magnesium Oxide) 400 Mg Tab, 400 MG PO 4XWK, (Reported) SUN,MON,THU,FRI Pravastatin Sodium (Pravastatin Sodium) 40 Mg Tab, 40 MG PO DAILY, (Reported) Verapamil HCl (Verapamil Sr) 120 Mg Cap, 120 MG PO DAILY, (Reported) Scheduled PRN Acetaminophen (Acetaminophen) 325 Mg Tablet, 325 MG PO QHS PRN for PAIN / FEVER, (Reported) Loperamide HCl (Imodium A-D) 2 Mg Tablet, 2 MG PO BID PRN for DIARRHEA, (Reported) Allergies Coded Allergies: Penicillins (Verified Allergy, Unknown, 06/14/20) doxycycline (Verified Allergy, Unknown, 06/14/20) levofloxacin (Verified Allergy, Unknown, 06/14/20) JOSE ROBERTO KEN MD Jun 17, 2020 09:09
--- NOTE | 2020-06-21 15:18 | ECGEPIP ---
[facility] - ED Test Date: 2020-06-14 Pat Name: FLOYD LIN Department: Room: - Gender: Female Nut Sifter: sánchez : 1945 Requested By: Yodit Centeno Order Number: [id number] Reading MD: Yodit Centeno Measurements Intervals [place] Rate: 98 P: 14 MO: 160 QRS: -3 QRSD: 72 T: -67 QT: 330 QTc: 422 Interpretive Statements SINUS RHYTHM ST DEVIATION AND MODERATE T-WAVE ABNORMALITY, CONSIDER ANTEROLATERAL ISCHEMIA ABNORMAL ECG SEE SCANNED DOWNTIME REPORT
== END 2020-06-17 16:20 | disposition home or self-care (01) | DRG 378 ==
LOC: M ED 10:45 → M ED INP 13:40 → ENRESERV 06-15 12:28 → M MSPAV 06-15 13:37
PROVIDERS: ADMIT Internal Medicine; ATTEND Internal Medicine
PROC: 30233N1 Transfusion of Nonautologous Red Blood Cells into Peripheral Vein, Percutaneous Approach (ICD-10-PCS; principal; 2020-06-14)
DX: K57.91 Diverticulosis of intestine, part unspecified, without perforation or abscess with bleeding (principal); D62 Acute posthemorrhagic anemia; N17.9 Acute kidney failure, unspecified; N18.3 Chronic kidney disease, stage 3 (moderate); K92.1 Melena; K21.9 Gastro-esophageal reflux disease without esophagitis; I12.9 Hypertensive chronic kidney disease with stage 1 through stage 4 chronic kidney disease, or unspecified chronic kidney disease; K44.9 Diaphragmatic hernia without obstruction or gangrene; Z79.899 Other long term (current) drug therapy; Z88.0 Allergy status to penicillin; Z88.8 Allergy status to other drugs, medicaments and biological substances; Z79.82 Long term (current) use of aspirin; R55 Syncope and collapse

== ENCOUNTER → 2020-07-24 | Outpatient (REF) | payer MEDICARE ==
[~2020-07-24] MED LIST changes: +ACET1TAB55 PO; +D200CAP PO; +LOPE2TAB12 PO; +PREV15CA PO
== END ==
LOC: M LAB REF 17:14
PROVIDERS: ATTEND Nurse Practitioner Family
DX: Z87.441 Personal history of nephrotic syndrome (principal)

== ENCOUNTER 2020-09-21 12:38 | Inpatient (IN) | payer MEDICARE ==
[~2020-09-21] VITALS: Ht 149.9 cm; Wt 59.5 kg
[2020-09-21 14:10] LABS: BASO % 0.2 % (0.0-1.0); EOS % 0.4 % (0.0-3.0); HEMATOCRIT 31.6 % (36.0-47.0); LYMPH # 1.8 10^3/uL (1.5-5.0); LYMPH % 19.8 % (24.0-44.0); MEAN CORPUSCULAR HEMOGLOBIN 29.8 pg (27.0-33.0); MEAN CORPUSCULAR HGB CONC 31.6 g/dl (32.0-36.5); MONO # 0.8 10^3/uL (0.0-0.8); MONO % 8.8 % (0.0-5.0); NEUTROPHILS # 6.4 10^3/uL (1.5-8.5); NEUTROPHILS % 70.5 % (36.0-66.0); PLATELET COUNT, AUTOMATED 446 10^3/uL (150-450); RED BLOOD COUNT 3.36 10^6/uL (4.00-5.40); WHITE BLOOD COUNT 9.1 10^3/uL (4.0-10.0)
[2020-09-21 14:21] LABS: INR 0.99; PROTHROMBIN TIME 13.3 SECONDS (12.5-14.3)
[2020-09-21 14:38] LABS: ALBUMIN 3.5 GM/DL (3.2-5.2); ALT/SGPT 16 U/L (12-78); BILIRUBIN,DIRECT < 0.1 MG/DL (0.0-0.2); BILIRUBIN,TOTAL 0.2 MG/DL (0.2-1.0); BLOOD UREA NITROGEN 38 MG/DL (7-18); CALCIUM LEVEL 9.1 MG/DL (8.8-10.2); CARBON DIOXIDE LEVEL 23 MEQ/L (21-32); CHLORIDE LEVEL 109 MEQ/L (98-107); CREATININE FOR GFR 1.83 MG/DL (0.55-1.30); GLOMERULAR FILTRATION RATE 28.6 (>39); GLUCOSE, FASTING 111 MG/DL (70-100); POTASSIUM SERUM 3.9 MEQ/L (3.5-5.1); SODIUM LEVEL 140 MEQ/L (136-145); TOTAL PROTEIN 6.8 GM/DL (6.4-8.2)
[2020-09-21] MEDS ORDERED: NS 1,000 ML IV SCH (14:48)
[2020-09-21] MEDS ORDERED: PANTOPRAZOLE 40MG VIAL (C9113 PER 1) IV ONE (15:15)
[2020-09-21] MEDS ORDERED: LOPERAMIDE 2 MG CAPLET PO PRN (16:00)
[2020-09-21] MEDS ORDERED: ACETAMINOPHEN TAB 650MG DOSE (2X325MG) PO PRN (16:00)
--- NOTE | 2020-09-21 16:05 | HPEPDOC ---
General Date of Admission Sep 21, 2020 at 15:47 Date of Service: Sep 21, 2020 Chief Complaint The patient is a 75-year-old female admitted with a reason for visit of Acute Kidney Injury,Gi Bleeding. Source: Patient Exam Limitations: No limitations Timing/Duration: 24 hours Severity: Mild History of Present Illness Patient 75 years old female with past history of diverticulosis, last colonoscopy was done 5 years ago and found internal hemorrhoids and diverticulosis presented hospital with shona [facility] . Of note patient was recently in the hospital for the same reason and she denied colonoscopy. In ED patient was found to have hemoglobin of 10, creatinine 1.8. CT scan of the abdomen and pelvis was done on 06/14/20 and showed extensive diverticulosis. Home Medications Scheduled Acetaminophen (Acetaminophen) 325 Mg Tablet, 325 MG PO QAM, (Reported) Aspirin (Aspirin EC) 81 Mg Tab, 81 MG PO QAM, (Reported) Cholecalciferol (Vitamin D3) (Vitamin D3) 50 Mcg Capsule, 2,000 UNITS PO DAILY, (Reported) Cyclosporine, Modified (Cyclosporine Modified) 25 Mg Cap, 50 MG PO BID, (Reported) L.acidoph/L.bulg/B.bif/S.therm (Bacid Caplet) 1 Tab Tab, 1 TAB PO QHS, (Reported) Lansoprazole (Lansoprazole) 15 Mg Cap, 15 MG PO DAILY, (Reported) Magnesium Oxide (Magnesium Oxide) 400 Mg Tab, 400 MG PO 4XWK, (Reported) SUN,MON,WED,FRI Pravastatin Sodium (Pravastatin Sodium) 40 Mg Tab, 40 MG PO DAILY, (Reported) Verapamil HCl (Verapamil Sr) 120 Mg Cap, 120 MG PO DAILY, (Reported) Scheduled PRN Acetaminophen (Acetaminophen) 325 Mg Tablet, 325 MG PO QHS PRN for PAIN / FEVER, (Reported) Loperamide HCl (Imodium A-D) 2 Mg Tablet, 2 MG PO BID PRN for DIARRHEA, (Reported) Allergies Coded Allergies: Penicillins (Verified Allergy, Unknown, 06/14/20) doxycycline (Verified Allergy, Unknown, 06/14/20) levofloxacin (Verified Allergy, Unknown, 06/14/20) Past Medical History Medical History LGIB 2/2 diverticulosis, history of colonic polyps, Q5Y colonoscopies for history of polyps and 1st degree relative with colon CA, last colonoscopy in [address] 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, HTN, GERD, chronic anemia Surgical History Appendectomy Colonoscopies Q5Y (due 2019, last 11/2014) Family History 1st degree relative with colon CA Social History * Smoker: Denies Alcohol: Denies Drugs: denies A-FIB/CHADSVASC A-FIB History Current/History of A-Fib/PAF?: No Current PO Anticoag Therapy: No Review of Systems Constitutional: Denies: Chills Eyes: Denies: Pain ENT: Denies: Head Aches Skin: Denies: Rash, Lesions Pulmonary: Denies: Dyspnea, Cough Cardiovascular: Denies: Chest Pain Gastrointestinal: Reports: Hematochezia; Denies: Nausea, Vomiting Genitourinary: Denies: Dysuria Hematologic: Denies: Bruising, Bleeding Excessively Endocrine: Denies: Polydipsia Musculoskeletal: Denies: Neck Pain Neurological: Denies: Weakness Psych: Reports: Mood Normal Physical Examination General Exam: Positive: Alert, Cooperative Eye Exam: Positive: PERRLA ENT Exam: Positive: Atraumatic Neck Exam: Positive: Supple; Negative: JVD Chest Exam: Positive: Clear to auscultation Heart Exam: Positive: Rate Normal Telemetry: Positive: No significant arrhythmia Abdomen Exam: Positive: Normal bowel sounds, BS Hyperactive Extremity Exam: Negative: Clubbing Skin Exam: Positive: Nl turgor and temperature Neuro Exam: Positive: Normal Gait, Normal Tone Psych Exam: Positive: Mental status NL Vital Signs Vital Signs Date Time Temp Pulse Resp B/P (MAP) Pulse Ox O2 Delivery O2 Flow Rate FiO2 09/21/20 13:53 90 16 98 Room Air 09/21/20 13:45 157/84 (108) 09/21/20 12:38 98.5 Laboratory Data Labs 24H Laboratory Tests 2 09/21/20 13:55: Immature Granulocyte % (Auto) 0.3, Neutrophils (%) (Auto) 70.5H, Lymphocytes (%) (Auto) 19.8L, Monocytes (%) (Auto) 8.8H, Eosinophils (%) (Auto) 0.4, Basophils (%) (Auto) 0.2, Neutrophils # (Auto) 6.4, Lymphocytes # (Auto) 1.8, Monocytes # (Auto) 0.8, Eosinophils # (Auto) 0.0, Basophils # (Auto) 0.0, Nucleated Red Blood Cells % (auto) 0.0, Prothrombin Time 13.3, Prothromb Time International Ratio 0.99, Activated Partial Thromboplast Time 30.0, Anion Gap 8, Glomerular Filtration Rate 28.6L, Calcium Level 9.1, Total Bilirubin 0.2, Direct Bilirubin < 0.1, Aspartate Amino Transf (AST/SGOT) 11, Alanine Aminotransferase (ALT/SGPT) 16, Alkaline Phosphatase 106, Total Protein 6.8, Albumin 3.5, Albumin/Globulin Ratio 1.1L CBC/BMP Laboratory Tests 09/21/20 13:55 Assessment/Plan Patient 75 years old female with past history of diverticulosis, last colonoscopy was done 5 years ago and found internal hemorrhoids and diverticulosis presented hospital with shona BRB[facility] . Of note patient was recently in the hospital for the same reason and she denied colonoscopy. In ED patient was found to have hemoglobin of 10, creatinine 1.8. CT scan of the abdomen and pelvis was done on 06/14/20 and showed extensive diverticulosis. Problems (1) GI bleeding Status: Acute Problem Text: Most likely secondary to lower GI bleed secondary to diverticulosis Appreciate/agree with GI consult for possible colonoscopy and EGD PPI for now IV fluid H&H every 6 hours Clear liquid diet (2) Acute kidney injury Status: Acute Problem Text: Acute on chronic kidney injury secondary to dehydration IV fluid Continue to monitor (3) Hypertension Status: Chronic Problem Text: Under control Continue home meds Plan / VTE VTE Prophylaxis Ordered?: No VTE Exclusion Pharmacological: Active Bleeding ABRAHAM BAILEY DO Sep 21, 2020 16:05
[2020-09-21] MEDS: NS 1,000 ML IV SCH (16:27)
[2020-09-21 18:00] VITALS: BP 151/85
[2020-09-21 19:12] LABS: HEMATOCRIT 28.7 % (36.0-47.0)
[2020-09-21] MEDS ORDERED: PANTOPRAZOLE 40MG VIAL (C9113 PER 1) IV SCH (21:00)
[2020-09-21] MEDS: NEORAL 25 MG CAP (J7515) PO SCH (21:04)
[2020-09-21 22:00] VITALS: BP 107/60
[2020-09-22] VITALS (15 sets, daily range): BP systolic 108–141; BP diastolic 60–85
[2020-09-22] MEDS: NS 1,000 ML IV SCH ×3 (00:04→22:14)
[2020-09-22 00:58] LABS: HEMOGLOBIN 7.8 g/dl (12.0-15.5)
[2020-09-22] MEDS: PANTOPRAZOLE 40MG VIAL (C9113 PER 1) IV SCH ×2 (04:56→15:13)
[2020-09-22 06:10] LABS: HEMATOCRIT 24.7 % (36.0-47.0); HEMOGLOBIN 7.5 g/dl (12.0-15.5); MEAN CORPUSCULAR HEMOGLOBIN 29.2 pg (27.0-33.0); MEAN CORPUSCULAR HGB CONC 30.4 g/dl (32.0-36.5); MEAN CORPUSCULAR VOLUME 96.1 fl (80.0-96.0); PLATELET COUNT, AUTOMATED 358 10^3/uL (150-450); RED BLOOD COUNT 2.57 10^6/uL (4.00-5.40); WHITE BLOOD COUNT 5.6 10^3/uL (4.0-10.0)
[2020-09-22 06:36] LABS: ALBUMIN 2.7 GM/DL (3.2-5.2); BILIRUBIN,TOTAL 0.3 MG/DL (0.2-1.0); CREATININE FOR GFR 1.36 MG/DL (0.55-1.30); GLOMERULAR FILTRATION RATE 40.2 (>39); MAGNESIUM LEVEL 1.8 MG/DL (1.8-2.4); POTASSIUM SERUM 4.1 MEQ/L (3.5-5.1); TOTAL PROTEIN 5.2 GM/DL (6.4-8.2)
[2020-09-22] MEDS ORDERED: ASPIRIN 81 MG ENTERIC TAB PO SCH (09:00)
[2020-09-22] MEDS: VERAPAMIL 120 MG SR TAB PO SCH (09:00)
[2020-09-22] MEDS: NEORAL 25 MG CAP (J7515) PO SCH ×2 (10:13→20:56)
[2020-09-22] MEDS: PRAVASTATIN 20 MG TAB PO SCH (10:13)
[2020-09-22] MEDS ORDERED: GOLYTELY SOLN 4000 ML BTL PO ONE ×2 (13:15→15:00)
--- NOTE | 2020-09-22 17:39 | IPNPDOC ---
Text Note Date of Service The patient was seen on 09/22/20. NOTE Hospitalist Progress Note Subjective: The patient and her nurse reports that she does continue to have bloody stools with bright red blood. She is not having frequent bowel movements, however she certainly does have active bleeding. Otherwise, she does not have any abdominal pain, nausea, vomiting, or any other GI complaints. She does continue to feel fatigued. Otherwise, the remainder of her review of systems is negative. Objective: General: Awake, alert, oriented 3. Not in any acute distress. HEENT: Head normocephalic, atraumatic, sclera are nonicteric. Hearing is grossly intact to conversation. Respiratory: Clear to auscultation bilaterally with no wheezes, rales, or rhonchi. Cardiovascular: Regular rate and rhythm, with no rubs, gallops, or murmur. Abdomen: Soft, nontender, nondistended, no hepatosplenomegaly appreciated. Bowel sounds present. Extremities: 2+ pulses in the radial and dorsalis pedis bilaterally. No evidence of clubbing or cyanosis. Assessment/Plan: -Acute Lower GI bleed H/H has dropped from 10 yesterday to 7.5 this morning. 3 units of blood has been ordered, patient consented. Patient has not been nothing by mouth, and have breakfast this morning. We will switch her over to clear liquid diet now. I spoke with GI, and we'll have her complete a 4 L of GoLYTELY between now and 6 AM tomorrow morning, and will plan on colonoscopy early tomorrow morning. H&H is scheduled every 6 hours, will administer more blood as needed. Pulse and blood pressure have remained within normal limits since admission. Continue PPI. Will discontinue her home dose of aspirin while she is actively bleeding. -Acute kidney injury Likely secondary to hypovolemia. She does not have any record of chronic kidney disease, creatinine is improved today, but not back to normal. Continue with IV fluids. -Hypertension Within acceptable limits. No signs of hypotension at this time. Continue with home dose of verapamil -Hyperlipidemia Continue home dose of pravastatin -DVT prophylaxis Patient is actively bleeding VS,Fishbone, I+O VS, Fishbone, I+O Laboratory Tests 09/21/20 18:55 09/22/20 00:52 09/22/20 05:42 Vital Signs Date Time Temp Pulse Resp B/P (MAP) Pulse Ox O2 Delivery O2 Flow Rate FiO2 09/22/20 16:07 97.8 93 17 138/84 97 Room Air I&O- Last 24 Hours up to 6 AM 09/22/20 06:00 Intake Total 1561 ml Output Total 400 ml Balance 1161 ml SAMSON JOLLY DO Sep 22, 2020 17:39
[2020-09-22 23:11] LABS: HEMATOCRIT 28.6 % (36.0-47.0); HEMOGLOBIN 9.1 g/dl (12.0-15.5)
[2020-09-23] MEDS: NS 1,000 ML IV SCH ×2 (03:50→17:55)
[2020-09-23] MEDS: PANTOPRAZOLE 40MG VIAL (C9113 PER 1) IV SCH ×2 (03:50→16:00)
[2020-09-23 06:00] VITALS: BP 130/76
[2020-09-23 06:51] LABS: HEMATOCRIT 25.3 % (36.0-47.0); HEMOGLOBIN 8.2 g/dl (12.0-15.5)
[2020-09-23] MEDS ORDERED: propofoL 200 MG/20 ML VIAL As Ordered ONE ×2 (07:12→07:13)
[2020-09-23] MEDS ORDERED: LIDOCAINE 2% 100MG/5ML SDV (FOR ANES.) As Ordered ONE (07:12)
[2020-09-23 11:03] LABS: MEAN CORPUSCULAR HGB CONC 31.4 g/dl (32.0-36.5); MEAN CORPUSCULAR VOLUME 89.3 fl (80.0-96.0); PLATELET COUNT, AUTOMATED 261 10^3/uL (150-450); RED BLOOD COUNT 2.89 10^6/uL (4.00-5.40)
[2020-09-23] MEDS ORDERED: PHENYLephrine HCL 500 MCG/5 ML (100MCG/ML) SYRINGE (J2370) As Ordered ONE (11:42)
[2020-09-23] MEDS ORDERED: ONDANSETRON 4MG/2ML VIAL IV PRN (12:00)
[2020-09-23] MEDS: PRAVASTATIN 20 MG TAB PO SCH (12:59)
[2020-09-23] MEDS: MAGNESIUM OXIDE 400 MG TAB (MAG-OX) PO SCH (12:59)
[2020-09-23] MEDS: VERAPAMIL 120 MG SR TAB PO SCH (13:00)
[2020-09-23] MEDS: NEORAL 25 MG CAP (J7515) PO SCH ×2 (13:00→20:58)
[2020-09-23 14:00] VITALS: BP 136/78
[2020-09-23 15:01] LABS: HEMATOCRIT 24.2 % (36.0-47.0); HEMOGLOBIN 7.8 g/dl (12.0-15.5); MEAN CORPUSCULAR HEMOGLOBIN 28.9 pg (27.0-33.0); MEAN CORPUSCULAR HGB CONC 32.2 g/dl (32.0-36.5); MEAN CORPUSCULAR VOLUME 89.6 fl (80.0-96.0); PLATELET COUNT, AUTOMATED 253 10^3/uL (150-450); WHITE BLOOD COUNT 7.4 10^3/uL (4.0-10.0)
--- NOTE | 2020-09-23 15:51 | IPN ---
PROGRESS NOTE DATE: 09/23/2020 SUBJECTIVE: The patient is admitted with GI bleed, acute blood loss anemia. Going down for EGD and colonoscopy today, suspected lower GI bleed. She had acute kidney injury probably from hypovolemia. Had past history of hyperlipidemia and hypertension. She denies any chest pain or shortness of breath, abdominal pain. Looking forward to getting her procedure done. She looks to have been transfused three units of blood so far. PHYSICAL EXAM: 130/76, pulse 80, 97% O2 saturation. Patient is alert and conversant, in no distress. Lungs clear. Heart regular rhythm. Abdomen is soft, nontender, no masses. No peripheral edema. LABS: Hemoglobin 8.8, was up to 9.1 after transfusion yesterday. Sodium 142, potassium 4.1, BUN 35, creatinine 1.36. IMPRESSION: 1. GI bleed, acute blood loss anemia. EGD and colonoscopy today. Serial labs have been ordered. She has already been transfused three units. 2. Hypertension: Blood pressure well controlled with current regimen. 3. Hyperlipidemia: Continue current dose of Pravastatin.
[2020-09-23] MEDS ORDERED: MIRALAX *UNIT DOSE* 17GM PACKET PO ONE (16:00)
--- NOTE | 2020-09-23 17:14 | ROOR ---
Patient Name: Livier Alcaraz Procedure Date: 09/23/2020 6:31 AM Date of : 1945 Age: 75 Room: Main OR Gender: Female Note Status: Finalized Procedure: Upper GI endoscopy Indications: Acute post hemorrhagic anemia, Hematochezia Providers: Eric Ferrari MD Referring MD: 2. Inpatient 2. Inpatient Requesting Provider: Medicines: Monitored Anesthesia Care Complications: No immediate complications. Procedure: Pre-Anesthesia Assessment: - Prior to the procedure, a History and Physical was performed, and patient medications and allergies were reviewed. The patient is competent. The risks and benefits of the procedure and the sedation options and risks were discussed with the patient. All questions were answered and informed consent was obtained. Patient identification and proposed procedure were verified by the physician, the nurse and the anesthesiologist in the procedure room. Mental Status Examination: alert and oriented. Airway Examination: normal oropharyngeal airway and neck mobility. Respiratory Examination: clear to auscultation. CV Examination: normal. Prophylactic Antibiotics: The patient does not require prophylactic antibiotics. Prior Anticoagulants: The patient has taken no previous anticoagulant or antiplatelet agents. ASA Grade Assessment: III - A patient with severe systemic disease. After reviewing the risks and benefits, the patient was deemed in satisfactory condition to undergo the procedure. The anesthesia plan was to use monitored anesthesia care (MAC). Immediately prior to administration of medications, the patient was re-assessed for adequacy to receive sedatives. The heart rate, respiratory rate, oxygen saturations, blood pressure, adequacy of pulmonary ventilation, and response to care were monitored throughout the procedure. The physical status of the patient was re-assessed after the procedure. The Endoscope was introduced through the mouth, and advanced to the second part of duodenum. The upper GI endoscopy was accomplished without difficulty. The patient tolerated the procedure well. Findings: A large hiatal hernia was present. There is no endoscopic evidence of esophagitis or ulcerations in the entire esophagus. No gross lesions were noted in the stomach. A 15 mm non-bleeding diverticulum was found in the third portion of the duodenum. Impression: - Large hiatal hernia. - No gross lesions in the stomach. - Non-bleeding duodenal diverticulum. - No specimens collected. Recommendation: - Patient has a contact number available for emergencies. The signs and symptoms of potential delayed complications were discussed with the patient. Return to normal activities tomorrow. Written discharge instructions were provided to the patient. - High fiber diet. - Continue present medications. - Follow an antireflux regimen. - Return to primary care physician. - Follow the recommendations as per the other procedure note. Procedure Code(s): --- Professional --- 85815, Esophagogastroduodenoscopy, flexible, transoral; diagnostic, including collection of specimen(s) by brushing or washing, when performed (separate procedure) Diagnosis Code(s): --- Professional --- K44.9, Diaphragmatic hernia without obstruction or gangrene D62, Acute posthemorrhagic anemia K92.1, Melena (includes Hematochezia) K57.10, Diverticulosis of small intestine without perforation or abscess without bleeding CPT copyright 2019 [employer]. All rights reserved. The codes documented in this report are preliminary and upon full stack web developer review may be revised to meet current compliance requirements. Eric Ferrari MD Eric Ferrari MD 09/23/2020 5:13:11 PM Electronically signed by Eric Ferrari MD Number of Addenda: 0 Note Initiated On: 09/23/2020 6:31 AM Estimated Blood Loss: Estimated blood loss: none.
--- NOTE | 2020-09-23 17:19 | ROOR ---
Patient Name: Livier Alcaraz Procedure Date: 09/23/2020 6:29 AM Date of : 1945 Age: 75 Room: Main OR Gender: Female Note Status: Finalized Procedure: Colonoscopy Indications: Hematochezia, Acute post hemorrhagic anemia Providers: Eric Ferrari MD Referring MD: 2. Inpatient 2. Inpatient Requesting Provider: Medicines: Monitored Anesthesia Care Complications: No immediate complications. Procedure: Pre-Anesthesia Assessment: - Prior to the procedure, a History and Physical was performed, and patient medications and allergies were reviewed. The patient is competent. The risks and benefits of the procedure and the sedation options and risks were discussed with the patient. All questions were answered and informed consent was obtained. Patient identification and proposed procedure were verified by the physician, the nurse and the anesthesiologist in the procedure room. Mental Status Examination: alert and oriented. Airway Examination: normal oropharyngeal airway and neck mobility. Respiratory Examination: clear to auscultation. CV Examination: normal. Prophylactic Antibiotics: The patient does not require prophylactic antibiotics. Prior Anticoagulants: The patient has taken no previous anticoagulant or antiplatelet agents. ASA Grade Assessment: II - A patient with mild systemic disease. After reviewing the risks and benefits, the patient was deemed in satisfactory condition to undergo the procedure. The anesthesia plan was to use monitored anesthesia care (MAC). Immediately prior to administration of medications, the patient was re-assessed for adequacy to receive sedatives. The heart rate, respiratory rate, oxygen saturations, blood pressure, adequacy of pulmonary ventilation, and response to care were monitored throughout the procedure. The physical status of the patient was re-assessed after the procedure. The Colonoscope was introduced through the anus and advanced to the terminal ileum, with identification of the appendiceal orifice and IC valve. The colonoscopy was performed without difficulty. The patient tolerated the procedure well. The quality of the bowel preparation was good. The terminal ileum, ileocecal valve, appendiceal orifice, and rectum were photographed. Scope insertion time was 3 minutes. Scope withdrawal time was 9 minutes. The total duration of the procedure was 12 minutes. Findings: The perianal and digital rectal examinations were normal. The terminal ileum appeared normal. A tattoo was seen in the transverse colon. The tattoo site appeared abnormal. Biopsies were taken with a cold forceps for histology. A 15 mm polyp was found in the transverse colon. The polyp was sessile. Polypectomy was attempted, initially using a cold biopsy forceps. Polyp resection was incomplete with this device. This intervention then required a different device and polypectomy technique. The polyp was removed with a cold snare. Resection and retrieval were complete. To close a defect after polypectomy, two hemostatic clips were successfully placed. There was no bleeding at the end of the procedure. Multiple small and large-mouthed diverticula were found from sigmoid to ascending colon. There was no evidence of diverticular bleeding. Non-bleeding external and internal hemorrhoids were found during retroflexion. The hemorrhoids were medium-sized. Impression: - The examined portion of the ileum was normal. - A tattoo was seen in the transverse colon. The tattoo site appeared abnormal. Biopsied. - One 15 mm polyp in the transverse colon, removed with a cold snare. Resected and retrieved. Clips were placed. - Severe diverticulosis from sigmoid to ascending colon. There was no evidence of diverticular bleeding. - Non-bleeding external and internal hemorrhoids. Recommendation: - Patient has a contact number available for emergencies. The signs and symptoms of potential delayed complications were discussed with the patient. Return to normal activities tomorrow. Written discharge instructions were provided to the patient. - High fiber diet. - Continue present medications. - Use original regular Metamucil one teaspoon PO daily. - Await pathology results. - Repeat colonoscopy in 3 years for surveillance based on pathology results and depending on clinical and functional status. - Telephone GI clinic for pathology results in 2 weeks. - Return to primary care physician. Procedure Code(s): --- Professional --- 06243, Colonoscopy, flexible; with removal of tumor(s), polyp(s), or other lesion(s) by snare technique 25090, 59, Colonoscopy, flexible; with biopsy, single or multiple Diagnosis Code(s): --- Professional --- K64.8, Other hemorrhoids K63.5, Polyp of colon K92.1, Melena (includes Hematochezia) D62, Acute posthemorrhagic anemia K57.30, Diverticulosis of large intestine without perforation or abscess without bleeding CPT copyright 2019 [employer]. All rights reserved. The codes documented in this report are preliminary and upon control valve technician review may be revised to meet current compliance requirements. Eric Ferrari MD Eric Ferrari MD 09/23/2020 5:19:14 PM Electronically signed by Eric Ferrari MD Number of Addenda: 0 Note Initiated On: 09/23/2020 6:29 AM Estimated Blood Loss: Estimated blood loss was minimal.
[2020-09-23 21:08] LABS: HEMATOCRIT 23.1 % (36.0-47.0); HEMOGLOBIN 7.3 g/dl (12.0-15.5); MEAN CORPUSCULAR HEMOGLOBIN 28.6 pg (27.0-33.0); MEAN CORPUSCULAR HGB CONC 31.6 g/dl (32.0-36.5); MEAN CORPUSCULAR VOLUME 90.6 fl (80.0-96.0); PLATELET COUNT, AUTOMATED 260 10^3/uL (150-450); RED BLOOD COUNT 2.55 10^6/uL (4.00-5.40); WHITE BLOOD COUNT 7.8 10^3/uL (4.0-10.0)
[2020-09-23 22:00] VITALS: BP 118/67
[2020-09-24] MEDS: PANTOPRAZOLE 40MG VIAL (C9113 PER 1) IV SCH ×2 (03:32→16:00)
[2020-09-24] MEDS: NS 1,000 ML IV SCH ×2 (03:32→13:07)
[2020-09-24 04:19] LABS: HEMATOCRIT 23.5 % (36.0-47.0); HEMOGLOBIN 7.3 g/dl (12.0-15.5); MEAN CORPUSCULAR HGB CONC 31.1 g/dl (32.0-36.5); PLATELET COUNT, AUTOMATED 273 10^3/uL (150-450); RED BLOOD COUNT 2.61 10^6/uL (4.00-5.40)
[2020-09-24 04:39] LABS: CREATININE FOR GFR 1.03 MG/DL (0.55-1.30); GLOMERULAR FILTRATION RATE 55.5 (>39); POTASSIUM SERUM 3.8 MEQ/L (3.5-5.1)
[2020-09-24 06:00] VITALS: BP 149/80
[2020-09-24] MEDS ORDERED: METAMUCIL (PSYLLIUM) PACKET PO SCH (09:00)
[2020-09-24 09:34] LABS: HEMOGLOBIN 8.5 g/dl (12.0-15.5); MEAN CORPUSCULAR HEMOGLOBIN 29.4 pg (27.0-33.0); MEAN CORPUSCULAR HGB CONC 32.7 g/dl (32.0-36.5); PLATELET COUNT, AUTOMATED 291 10^3/uL (150-450); RED BLOOD COUNT 2.89 10^6/uL (4.00-5.40)
[2020-09-24] MEDS: NEORAL 25 MG CAP (J7515) PO SCH (09:56)
[2020-09-24 09:57] VITALS: BP 151/88
[2020-09-24] MEDS: MAGNESIUM OXIDE 400 MG TAB (MAG-OX) PO SCH (09:57)
[2020-09-24] MEDS: PRAVASTATIN 20 MG TAB PO SCH (09:57)
[2020-09-24] MEDS: VERAPAMIL 120 MG SR TAB PO SCH (09:57)
--- NOTE | 2020-09-24 10:06 | DSES ---
DISCHARGE SUMMARY DATE OF ADMISSION: 09/21/2020 TENTATIVE DATE OF DISCHARGE: 09/24/2020 PRINCIPAL DIAGNOSIS: Gastrointestinal bleeding with acute blood loss anemia. SECONDARY DIAGNOSES: 1. Hyperlipidemia. 2. Hypertensive heart disease. PROCEDURE: EGD and colonoscopy with Dr. Ferrari 09/23/2020. HISTORY: Livier Alcaraz was admitted with GI bleeding and acute blood loss anemia. Please see details in History and Physical from admission. HOSPITAL COURSE: The patient was admitted to the medical bed and transfused three units of packed red blood cells. Upper endoscopy showed no significant problems. No bleeding source seen and a nonbleeding diverticulum in the third portion of the duodenum. Colonoscopy showed that there was a tattoo in the transverse colon, the tattoo slightly appeared abnormal, and so it was biopsied. There was a 15 mm polyp in the transverse colon, which was removed. There as no evidence of any bleeding anywhere. This morning, she is having no rectal bleeding and she would like to go home. Her hemoglobin has been stable, though slow at 7.3. I convinced her for another CBC and if that is stable, she could be discharged taking iron as an outpatient. If it is any lower, she will need another transfusion. LABORATORY DATA: Today's labs white count 7, hemoglobin 7.3, platelets 273,000. Sodium 146, potassium 3.8, BUN 14, creatinine 1.0, glucose 94. DISPOSITION: I anticipate discharging her today if her hemoglobin is stable. DISCHARGE MEDICATIONS: She would be discharged on ferrous sulfate 325 mg b.i.d. and then maintaining the usual medicines she was taking prior to admission with the exception of aspirin, which would be discontinued. Otherwise, she would stay on cyclosporine 50 mg b.i.d., Bacid tablets, lansoprazole 15 mg daily, Imodium as needed, pravastatin 40 mg daily, Verapamil SR 120 mg daily. Mag-ox 400 mg Thursday, Thursday, Thursday, and Thursday. Vitamin D 200 units daily and Tylenol as needed for pain. DISCHARGE ACTIVITY: As tolerated. DISCHARGE DIET: As tolerated. DISCHARGE FOLLOW-UP: With her primary care provider, Dr. Cameron in a week with follow-up CBC at that time. This plan is all contingent on pending hemoglobin.
[2020-09-24 15:00] LABS: HEMATOCRIT 23.2 % (36.0-47.0); HEMOGLOBIN 7.6 g/dl (12.0-15.5); MEAN CORPUSCULAR HEMOGLOBIN 28.9 pg (27.0-33.0); MEAN CORPUSCULAR HGB CONC 32.8 g/dl (32.0-36.5); MEAN CORPUSCULAR VOLUME 88.2 fl (80.0-96.0); PLATELET COUNT, AUTOMATED 279 10^3/uL (150-450); RED BLOOD COUNT 2.63 10^6/uL (4.00-5.40); WHITE BLOOD COUNT 8.5 10^3/uL (4.0-10.0)
[2020-09-24] MEDS ORDERED: FERR325T3 PO (15:14)
== END 2020-09-24 16:32 | disposition home or self-care (01) | DRG 378 ==
LOC: M ED 12:38 → M ED INP 15:47 → ENRESERV 16:17 → M MSPAV 18:01
PROVIDERS: ADMIT Internal Medicine; ATTEND Family Medicine
PROC: 30233N1 Transfusion of Nonautologous Red Blood Cells into Peripheral Vein, Percutaneous Approach (ICD-10-PCS; 2020-09-22)
PROC: 0DBL8ZX Excision of Transverse Colon, Via Natural or Artificial Opening Endoscopic, Diagnostic (ICD-10-PCS; 2020-09-23)
PROC: 0DJ08ZZ Inspection of Upper Intestinal Tract, Via Natural or Artificial Opening Endoscopic (ICD-10-PCS; principal; 2020-09-23 08:00)
DX: K92.1 Melena (principal); D62 Acute posthemorrhagic anemia; N17.9 Acute kidney failure, unspecified; E78.5 Hyperlipidemia, unspecified; I11.9 Hypertensive heart disease without heart failure; D12.3 Benign neoplasm of transverse colon; Z79.82 Long term (current) use of aspirin; Z79.899 Other long term (current) drug therapy; K64.8 Other hemorrhoids; K57.10 Diverticulosis of small intestine without perforation or abscess without bleeding; Z88.0 Allergy status to penicillin; Z88.8 Allergy status to other drugs, medicaments and biological substances; K44.9 Diaphragmatic hernia without obstruction or gangrene

== ENCOUNTER → 2020-10-25 | Outpatient (REF) | payer MEDICARE ==
[~2020-10-25] MED LIST changes: +FERR325T3 PO
== END ==
LOC: M LAB REF 17:06
PROVIDERS: ATTEND Nurse Practitioner Family
DX: Z87.441 Personal history of nephrotic syndrome (principal)

== ENCOUNTER → 2021-01-24 | Outpatient (REF) | payer MEDICARE | LOC: M LAB REF 16:38 | PROVIDERS: ATTEND Nurse Practitioner Family | DX: Z51.81 Encounter for therapeutic drug level monitoring (principal); Z79.899 Other long term (current) drug therapy ==

== ENCOUNTER → 2021-05-21 | Outpatient (REF) | payer MEDICARE ==
[~2021-05-21] MED LIST changes: +CYCL25CA23; +CYCL25CA23 PO; -CYCL25CA6; -CYCL25CA6 PO; -PREV15CA18 PO; +PREV15CA24 PO
== END ==
LOC: M LAB REF 13:06
PROVIDERS: ATTEND Nurse Practitioner Family
DX: N18.31 Chronic kidney disease, stage 3a (principal); Z87.441 Personal history of nephrotic syndrome; E83.42 Hypomagnesemia

== ENCOUNTER → 2021-08-08 | Outpatient (REF) | payer MEDICARE | LOC: M LAB REF 17:50 | PROVIDERS: ATTEND Nurse Practitioner Family | DX: E83.42 Hypomagnesemia (principal); Z87.441 Personal history of nephrotic syndrome ==

== ENCOUNTER → 2021-09-12 | Outpatient (CLI) | payer MEDICARE ==
--- NOTE | 2021-09-12 14:34 | REPMRS ---
Patient History The patient states she has not had a clinical breast exam in over a year. Patient is postmenopausal. No Hormone Replacement Therapy Tomosynthesis is performed. Volpara breast density is b. Tyrer-zi lifetime risk of breast cancer 2.8%. Patient states no breast complaints today. Patient has signed MRS History Sheet. Digital Woman Screen Mammo: September 12, 2021 - Exam #: [id number] Bilateral CC and MLO view(s) were taken. Technologist: Taylor Dunaway, Waiter/Waitress Counter Prior study comparison: December 31, 2017, bilateral screening 3D/tomosynthesis, performed at [facility]. August 07, 2015, bilateral screening mammogram, performed at [facility]. FINDINGS: There are scattered fibroglandular densities. There has been no change in the appearance of the mammogram from the prior studies. There is a mild amount of residual fibroglandular tissue which is fairly symmetric. There is no interval development of dominant mass, architectural distortion, or clustered microcalcification suggestive of malignancy. Assessment: BI-RADS/ACR category 1 mammogram. Negative Mammogram. Recommendation Routine screening mammogram in 1 year (for women over age 40). This mammogram was interpreted with the aid of an FDA-approved computer-aided dectection system. Electronically Signed By: Robert Lomax MD 09/12/21 [id number]
--- NOTE | 2021-09-12 15:25 | DEXAMM ---
INDICATION: OSTEO SCREEN. COMPARISON: 12/31/2017, 07/03/2005. TECHNIQUE: Bone density was measured using dual-energy x-ray absorptiometry (DEXA). FINDINGS: AP SPINE L1-L4 BMD 1.113 g/cm2 Young Adult T-Score -0.7 Age Matched Z-Score 1.1. LT FEMUR, TOTAL BMD 0.832 g/cm2 Young Adult T-Score -1.4 Age Matched Z-Score 0.5. LT NECK BMD 0.694 g/cm2 Young Adult T-Score -2.5 Age Matched Z-Score -0.5. RT FEMUR, TOTAL BMD 0.770 g/cm2 Young Adult T-Score -1.9 Age Matched Z-Score 0.0. RT NECK BMD 0.707 g/cm2 Young Adult T-Score -2.4 Age Matched Z-Score -0.4. IMPRESSION: There is normal bone density of the spine. There is low bone density of the left hip. There is low bone density of the right hip. The density of the spine has increased 20.3% since the initial exam on 07/03/2005. The density of the spine decreased 0.3% since most recent exam on 12/31/2017. The density of the left hip has decreased 3.6% since initial exam on 07/03/2005. The density of the left hip has decreased 5.2% since most recent exam on 12/31/2017. The density of the right hip has increased 0.1% since the initial exam on 07/03/2005. The density of the right hip has decreased 5.1% since the most recent exam on 12/31/2017. FOLLOW-UP: Recommendation for the next bone density exam: 2 years. <Electronically signed by Robert Lomax > 09/12/21 152
== END ==
LOC: M WHC 13:23
PROVIDERS: ATTEND Nurse Practitioner Adult Health
DX: Z12.31 Encounter for screening mammogram for malignant neoplasm of breast (principal); M81.0 Age-related osteoporosis without current pathological fracture

== ENCOUNTER → 2021-10-09 | Outpatient (REF) | payer MEDICARE | LOC: M LAB REF 16:57 | PROVIDERS: ATTEND Nurse Practitioner Family | DX: Z79.899 Other long term (current) drug therapy (principal); E83.42 Hypomagnesemia ==

== ENCOUNTER → 2022-02-20 | Outpatient (REF) | payer MEDICARE ==
[~2022-02-20] MED LIST changes: +LOSA25TA13; +LOSA25TA13 PO; -LOSA25TA14; -LOSA25TA14 PO
== END ==
LOC: M LAB REF 16:17
PROVIDERS: ATTEND Nurse Practitioner Adult Health
DX: D75.839 Thrombocytosis, unspecified (principal)

== ENCOUNTER → 2022-03-06 | Outpatient (REF) | payer MEDICARE | LOC: M LAB REF 09:28 | PROVIDERS: ATTEND Nurse Practitioner Adult Health | DX: R19.7 Diarrhea, unspecified (principal) ==

== ENCOUNTER → 2022-04-09 | Outpatient (REF) | payer MEDICARE | LOC: M LAB REF 17:25 | PROVIDERS: ATTEND Nurse Practitioner Family | DX: N04.0 Nephrotic syndrome with minor glomerular abnormality (principal); Z79.899 Other long term (current) drug therapy ==

== ENCOUNTER → 2022-04-28 | Outpatient (CLI) | payer MEDICARE | LOC: M RAD 10:00 | PROVIDERS: ATTEND Nurse Practitioner Family | DX: N18.31 Chronic kidney disease, stage 3a (principal) ==

== ENCOUNTER → 2022-07-09 | Outpatient (REF) | payer MEDICARE | LOC: M LAB REF 16:51 | PROVIDERS: ATTEND Nurse Practitioner Family | DX: Z79.899 Other long term (current) drug therapy (principal) ==

== ENCOUNTER → 2022-10-08 | Outpatient (REF) | payer MEDICARE | LOC: M LAB REF 17:12 | PROVIDERS: ATTEND Internal Medicine Nephrology | DX: N04.0 Nephrotic syndrome with minor glomerular abnormality (principal); Z79.899 Other long term (current) drug therapy ==

== ENCOUNTER → 2023-01-09 | Outpatient (REF) | payer MEDICARE | LOC: M LAB REF 17:02 | PROVIDERS: ATTEND Nurse Practitioner Family | DX: N04.0 Nephrotic syndrome with minor glomerular abnormality (principal); Z79.899 Other long term (current) drug therapy ==

== ENCOUNTER → 2023-02-17 | Outpatient (REF) | payer MEDICARE ==
[2023-02-17 18:16] LABS: CHOLESTEROL RISK RATIO 4.52 (<5); HDL CHOLESTEROL 43.3 MG/DL (>40); LDL CHOLESTEROL 92.7 MG/DL (<100); NON-HDL-C 152.7 MG/DL
== END ==
LOC: M LAB REF 17:26
PROVIDERS: ATTEND Nurse Practitioner Family
DX: E78.2 Mixed hyperlipidemia (principal); Z79.899 Other long term (current) drug therapy

== ENCOUNTER → 2023-05-20 | Outpatient (REF) | payer MEDICARE ==
[2023-05-20 18:03] LABS: FOLATE 13.8 NG/ML (>5.4)
== END ==
LOC: M LAB REF 17:03
PROVIDERS: ATTEND Nurse Practitioner Family
DX: D64.9 Anemia, unspecified (principal)

== ENCOUNTER → 2023-06-09 | Outpatient (REF) | payer MEDICARE | LOC: M LAB REF 17:27 | PROVIDERS: ATTEND Nurse Practitioner Family | DX: Z79.899 Other long term (current) drug therapy (principal); N04.0 Nephrotic syndrome with minor glomerular abnormality ==

== ENCOUNTER → 2023-08-26 | Outpatient (REF) | payer MEDICARE | LOC: M LAB REF 16:48 | PROVIDERS: ATTEND Nurse Practitioner Family | DX: N39.0 Urinary tract infection, site not specified (principal) ==

== ENCOUNTER → 2023-11-25 | Outpatient (REF) | payer MEDICARE | LOC: M LAB REF 17:27 | PROVIDERS: ATTEND Nurse Practitioner Family | DX: Z79.899 Other long term (current) drug therapy (principal); N04.0 Nephrotic syndrome with minor glomerular abnormality ==

== ENCOUNTER → 2024-03-10 | Outpatient (CLI) | payer MEDICARE | LOC: M WHC 13:34 | PROVIDERS: ATTEND Internal Medicine | DX: Z12.31 Encounter for screening mammogram for malignant neoplasm of breast (principal); M81.0 Age-related osteoporosis without current pathological fracture ==

== ENCOUNTER → 2024-04-18 | Outpatient (REF) | payer MEDICARE ==
[~2024-04-18] MED LIST changes: -AZEL0.055; -AZEL0.055 NARES; +AZEL1SPR4; +AZEL1SPR4 NARES
[2024-04-18 13:48] LABS: PERCENT SATURATION 28.7 % (13.2-45.0)
[2024-04-18 13:50] LABS: FERRITIN 238.3 NG/ML (7.3-270.7)
== END ==
LOC: M LAB REF 12:28
PROVIDERS: ATTEND Internal Medicine
DX: N18.32 Chronic kidney disease, stage 3b (principal); D63.1 Anemia in chronic kidney disease

== ENCOUNTER → 2024-06-08 | Outpatient (REF) | payer MEDICARE ==
[2024-06-08 18:16] LABS: ALBUMIN 3.9 G/DL (3.2-5.2); ALKALINE PHOSPHATASE 112 U/L (46-116); ALT/SGPT 11 U/L (7.0-40); AST/SGOT < 8 U/L (<34); BILIRUBIN,DIRECT 0.2 MG/DL (<0.4); BILIRUBIN,TOTAL 0.5 MG/DL (0.3-1.2); TOTAL PROTEIN 7.4 G/DL (5.7-8.2)
== END ==
LOC: M LAB REF 17:12
PROVIDERS: ATTEND Nurse Practitioner Family
DX: N18.31 Chronic kidney disease, stage 3a (principal)

== ENCOUNTER → 2024-09-13 | Outpatient (REF) | payer MEDICARE | LOC: M LAB REF 17:11 | PROVIDERS: ATTEND Nurse Practitioner Family | DX: N18.31 Chronic kidney disease, stage 3a (principal); N04.0 Nephrotic syndrome with minor glomerular abnormality ==

== ENCOUNTER → 2024-10-19 | Outpatient (REF) | payer MEDICARE | LOC: M LAB REF 17:26 | PROVIDERS: ATTEND Nurse Practitioner Family | DX: N04.0 Nephrotic syndrome with minor glomerular abnormality (principal) ==

== ENCOUNTER → 2024-11-24 | Outpatient (REF) | payer MEDICARE ==
[2024-11-24 14:01] LABS: PHOSPHORUS LEVEL 3.7 MG/DL (2.4-5.1)
[2024-11-24 14:03] LABS: PTH INTACT 69.2 PG/ML (18.5-88.0)
== END ==
LOC: M LAB REF 13:10
PROVIDERS: ATTEND Internal Medicine
DX: M81.0 Age-related osteoporosis without current pathological fracture (principal)

== ENCOUNTER → 2025-01-19 | Outpatient (REF) | payer MEDICARE ==
[2025-01-19 18:18] LABS: TOTAL PROTEIN,RANDOM URINE 54.8 MG/DL (0.0-14.0)
[2025-01-19 18:23] LABS: CREATININE,RANDOM URINE 216.8 MG/DL
== END ==
LOC: M LAB REF 16:58
PROVIDERS: ATTEND Nurse Practitioner Family
DX: N04.0 Nephrotic syndrome with minor glomerular abnormality (principal)

== ENCOUNTER → 2025-02-22 | Outpatient (REF) | payer MEDICARE ==
[~2025-02-22] MED LIST changes: -VERA100C4; +VERA100C6
[2025-02-22 17:55] LABS: CREATININE,RANDOM URINE 157.7 MG/DL
== END ==
LOC: M LAB REF 16:58
PROVIDERS: ATTEND Nurse Practitioner Family
DX: N04.0 Nephrotic syndrome with minor glomerular abnormality (principal); Z79.899 Other long term (current) drug therapy

== ENCOUNTER → 2025-04-27 | Outpatient (REF) | payer MEDICARE ==
[~2025-04-27] MED LIST changes: -PRAV40TA2; -PRAV40TA2 PO; +PRAV40TA85; +PRAV40TA85 PO
[2025-04-27 18:33] LABS: TOTAL PROTEIN,RANDOM URINE 32.9 MG/DL (0.0-14.0)
== END ==
LOC: M LAB REF 17:00
PROVIDERS: ATTEND Nurse Practitioner Family
DX: N04.0 Nephrotic syndrome with minor glomerular abnormality (principal); Z79.899 Other long term (current) drug therapy

== ENCOUNTER → 2025-05-25 | Outpatient (CLI) | payer MEDICARE | LOC: M RAD 10:08 | PROVIDERS: ATTEND Nurse Practitioner Family | DX: R60.0 Localized edema (principal); Z79.899 Other long term (current) drug therapy ==

== ENCOUNTER → 2025-08-08 | Outpatient (REF) | payer MEDICARE ==
[~2025-08-08] MED LIST changes: -VERA120C3; -VERA120C3 PO; +VERA120C9; +VERA120C9 PO
[2025-08-08 16:19] LABS: IRON (FE) 75.0 UG/DL (50-170)
[2025-08-08 16:20] LABS: PERCENT SATURATION 29.6 % (13.2-45.0)
[2025-08-08 16:22] LABS: VITAMIN B12 LEVEL 741.0 PG/ML (211-911)
== END ==
LOC: M LAB REF 15:23
PROVIDERS: ATTEND Internal Medicine
DX: D64.9 Anemia, unspecified (principal)